=== PATIENT | female | born 2005 | race Two or more races ===

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

== ENCOUNTER 2023-01-08 20:51 | Emergency (ER) | payer BC, SELFPAY ==
[2023-01-08 20:58] VITALS: BP 161/106; PULSE 116; RESP 20; TEMP 37.6; O2SAT 100
== END 2023-01-08 21:31 | disposition left against medical advice (07) ==
DX: R06.02 Shortness of breath (principal)
CPT/HCPCS: 99199

== ENCOUNTER 2023-03-03 18:25 | Inpatient (IN) | payer BC, SELFPAY ==
[2023-03-03] VITALS (17 sets, daily range): BP systolic 100–129; BP diastolic 60–104; PULSE 76–101; RESP 10–24; TEMP 36.8–37.6; O2SAT 96–100
--- NOTE | ~2023-03-03 | MR_ITS ---
MRI of the brain Clinical History: Seizure Technique: Axial and sagittal T1-weighted images were acquired. These were followed by axial T2-weigh sparkle, diffusion weighted, gradient, and FLAIR images. Coronal T1-weighted and FLAIR images were also p erformed. Following intravenous administration of 10 cc MultiHance gadolinium, T1-weighted fat-sat im aging was performed in the axial and coronal and sagittal planes. Findings: No abnormal signal seen in the brain parenchyma. No acute infarct, intracranial hemorrhage, or mass lesion. Ventricles and subarachnoid spaces are unremarkable. Orbits are unremarkable. Paranasal sinuses and m astoid air cells are clear. Major intracranial flow voids are intact. Sagittal midline structures are intact. No signal abnormality seen in the hippocampal regions. No abnormal postcontrast enhancement identified. IMPRESSION: Unremarkable exam. Reviewed, dictated and finalized at location . IMPRESSION: Unremarkable exam.
--- NOTE | 2023-03-03 19:37 | ECG_ITS ---
Measurements Intervals [place] Rate: 89 P: 65 IN: 131 QRS: 77 QRSD: 74 T: 47 QT: 337 QTc: 411 Interpretive Statements SINUS RHYTHM NORMAL ECG COMPARED TO ECG 08/13/2022 21:26:35 NO SIGNIFICANT CHANGES Electronically Signed On 03-04-2023 7:06:19 CDT by Ethan Starks M.D.
[2023-03-03] MEDS: ALPRAZolam (*CRX) 0.5 MG TABLET PO (19:48)
[2023-03-03] MEDS: SODIUM CHLORIDE 0.9% IV 1,000 ML 999 ML IV CONT (19:49)
[2023-03-03 19:52] LABS: Glucose Point of Care 100 mg/dl (65-105)
[2023-03-03 20:18] LABS: Amphetamine Screen Urine Negative (Negative); Barbiturate Screen Urine Negative (Negative); Benzodiazepines Screen Urine Negative (Negative); Cannabinoid Screen Urine Negative (Negative); Cocaine Screen Urine Negative (Negative); Methadone Screen Urine Negative (Negative); Opiate Screen Urine Negative (Negative); Phencyclidine Screen Urine Negative (Negative)
--- NOTE | 2023-03-03 20:32 | ED.GENADULT ---
HPI - General Adult General Chief complaint: Seizure Stated complaint: seizure Time Seen by Provider: 03/03/23 19:14 History of Present Illness HPI narrative: A 17-year-old female presenting with a chief complaint of seizure-like activity. The 1st episode happened 2 days ago. It occurred while she was in the mall where she developed an episode of lightheadedness, slow movement and then she started standing there and her eyes rolled back to into her head. Her friends were with her sometimes she return to mental status at baseline. Yesterday she had several episodes that were similar. And then today she has had 3 episodes although today the patient had blurry vision and then went limp and then the friend reported seizure-like activity. After that episode they reported that she did have a 15 period of somnolence before returning to baseline. She has not had a urinary incontinence or tongue biting. She has no history of seizures in the past. She denies use of drugs or alcohol. He denies trauma. Patient was evaluated at [facility] yesterday and diagnosed with pseudo nonepileptic seizures and given Neurology follow-up. The patient has not followed up with neurology appear Related Data Home Medications Medication Instructions Recorded Confirmed amitriptyline 25 mg tablet mg 03/03/23 03/03/23 medroxyprogesterone 150 mg/mL mg IM 03/03/23 intramuscular suspension mometasone 220 mcg/actuation(30 inhalation 03/03/23 doses) breath activated powder inhaler (Asmanex Twisthaler) Allergies Allergy/AdvReac Type Severity Reaction Status Date / Time No Known Allergies Allergy Verified 08/13/22 20:29 [facility] Past Medical History Medical History Asthma Surgical History Surgical History History of knee surgery Social History Social History Smoking status: Current every day smoker Tobacco type: e-cigarettes/vaping Alcohol intake: current Alcohol use details: occasional Substance use: never Exam Narrative: APPEARANCE: No apparent distress. Head: atraumatic. EYES: EOMI, NOSE: Atraumatic NECK: Trachea midline RESPIRATORY: No increased rate of breathing , clear to auscultation CARDIOVASCULAR: RRR, ABDOMINAL: Non-distended MUSCULOSKELETAl: No obvious deformities NEURO: Alert. Cranial nerves 2-12 grossly intact. Sensation light touch, motor function cerebellar function intact for 4 extremities. Gait exam was normal. SKIN:: Warm, dry. Normal color PSYCHIATRIC: Normal affect Course Vital Signs Vital signs: Vital Signs Temperature 98.2 F 03/03/23 18:22 Pulse Rate 88 03/03/23 18:22 Respiratory Rate 16 03/03/23 18:22 Blood Pressure 122/62 03/03/23 18:22 Pulse Oximetry 97 03/03/23 18:22 Temperature 99.6 F 03/03/23 19:37 Pulse Rate 89 03/03/23 22:38 Respiratory Rate 16 03/03/23 22:38 Blood Pressure 115/89 03/03/23 22:38 Pulse Oximetry 100 03/03/23 22:38 Oxygen Delivery Room Air 03/03/23 19:38 Medical Decision Making MDM Narrative Medical decision making narrative: -Presentation: 17-year-old female presenting with seizure-like activity that is increasing in frequency. -DDX includes but is not limited to: [id number] seizures, epileptic seizures, syncope -Co-morbidities complicating care: anxiety -Social determinants of health: patient is a freshman in college studying elementary teaching. [place]. Her family lives 2 hours away. -External Chart Review: Review of discharge paperwork from [facility] -Hx from independent Sources: friends -Amrita and Loyda at bedside -Discussion of Management/Consultants: Oriana - Neurology, Lizbeth - Hospitalist -Independent interpretation of studies: CBC showed a hemoglobin of 10.3. Metabolic panel is within normal limits. Urinaly
[2023-03-03 20:38] LABS: Basophils Absolute Auto 0.1 K/mm3 (0.0-0.1); Basophils Percent Auto 0.7 % (0.2-1.2); Eosinophils Absolute Auto 0.2 K/mm3 (0-0.3); Hematocrit 33.2 % (37.0-47.0); Hemoglobin 10.3 g/dL (12.0-15.0); Immature Granulocyte Absolute 0.02 K/mm3 (0.00-0.031); Immature Granulocyte Percent A 0.2 % (0-0.5); Lymphocytes Absolute Auto 2.32 K/mm3 (0.9-3.2); Lymphocytes Percent Auto 21.8 % (18.3-44.2); Mean Corpuscular Hemoglobin 24.9 pg (26-34); Mean Corpuscular Volume 80.4 fl (80-100); Mean Platelet Volume 8.9 fl (7.4-10.4); Monocytes Percent Auto 9.8 % (2.6-8.5); Neutrophils Percent Auto 65.5 % (45.5-73.1); Platelet Count Result 390 k/mm3 (150-375); Red Blood Count 4.13 M/mm3 (4.2-5.4); Red Cell Distribution Width 14.5 % (11.5-14.5); White Blood Count 10.6 K/mm3 (4.5-10.0)
[2023-03-03 20:49] LABS: Anion Gap 8 mmol/L (8-16); Blood Urea Nitrogen 8 mg/dL (8-21); Calcium 7.9 mg/dL (8.9-10.7); Carbon Dioxide 22 mmol/L (22-30); Chloride 110 mmol/L (98-107); Estimated CRCL calculation 130 ml/min; Estimated Glomerular Filt Rate > 60; Glucose 97 mg/dL (65-110); Potassium 3.7 mmol/L (3.4-5.0); Sodium 140 mmol/L (134-143)
[2023-03-03 21:22] LABS: Appearance Urine Clear (Clear); Bilirubin Urine Negative (Negative); Blood Urine Negative (Negative); Color Urine Yellow (Yellow); Glucose Urine UA Negative (Negative); Ketones Urine Negative (Negative); Leukocyte Esterase Ur Trace LEU/UL (Negative); Nitrate Urine Negative (Negative); Protein Urine Negative (Negative); Urobilinogen Urine 0.2 mg/dL (<2.0); pH Urine 5.5 (5.0-9.0)
[2023-03-03 21:27] LABS: Add Urine Microscopic? NO
--- NOTE | 2023-03-03 23:21 | PM.IMHP ---
H&P: HPI History of Present Illness Date/Time: 03/03/23 23:21 Chief Complaint: Seizure Narrative: This is a 17-year-old year old female patient has no prior history of any seizure activity. The patient states that she does not use any alcohol and has not tried any new medication. The patient stated that her 1st episode of the seizure occurred last night when she was at work. The patient stated that she sat down to eat and she felt like she was going to pass out she was in and out of it and she stated that her friends told her that her eyes rolled back in her head and she stiffened up. The patient was not incontinent of urine. The patient stated that she felt very fatigued afterwards. The patient stated that she had 2 more episodes today where she had blurred vision and went limp. The patient was not incontinent of urine and had no tongue biting. She is not on any medication. She denies any trauma. The patient was evaluated by [facility] yesterday and was diagnosed with pseudo nonepileptic seizures and given neurology follow-up. The patient has been unable to follow-up with neurology as of present. White counts 10.6. H&H is 10.3 and 33.2. Platelet count is 390. Calcium is 7.9. Her drug screen is negative. Neurology has been consulted. The patient is being admitted for observation status on the date of service of 03/03/2023. Review of Systems Review of Systems: All systems reviewed & are unremarkable except as noted in HPI and below Constitutional: Constitutional: Reports as per HPI and Reports no additional constitutional complaints Eyes: Eyes: Reports as per HPI and Reports no additional eye complaints ENT: Reports system reviewed and no additional complaints, except as documented and Reports Normal hearing present Cardiovascular: Cardiovascular: Reports no additional cardiovascular complaints Respiratory: Respiratory: Reports no additional respiratory complaints and Reports no additional respiratory complaints Gastrointestinal: Gastrointestinal: Reports as per HPI and Reports no additional gastrointestinal complaints Musculoskeletal: Musculoskeletal: Reports no additional musculoskeletal complaints Integumentary/Breasts: Skin/Breast: Reports system reviewed and no additional complaints, except as docu and Reports as per HPI Neurologic: Reports system reviewed and no additional complaints, except as documented, Reports as per HPI and Reports Normal hearing present Psychiatric: Psychiatric: Reports no additional psychiatric complaints and Reports as per HPI Endocrine: Endocrine: Reports no additional endocrine complaints Hematologic/Lymphatic: Hematologic/Lymphatic: Reports no additional hematologic/lymphatic complaints Allergic/Immunologic: Allergic/Immunologic: Reports no additional allergic/immunologic complaints [facility] Past Medical History Medical History (Updated 03/04/23 @ 00:01 by Nirmala Arceo NP) Asthma Precordial catch syndrome Surgical History Surgical History History of knee surgery Family History Family History (Updated 03/03/23 @ 23:51 by Nirmala Arceo NP) Mother Diabetes mellitus ALINA on CPAP Anemia Social History Social History (Updated 03/03/23 @ 23:52 by Nirmala Arceo NP) Social History: The patient lives with her mother and she attends [employer] and she is majoring in Education. She has no children. She is single. She denies any drugs or alcohol. Code status full code Smoking status: Current every day smoker Tobacco type: e-cigarettes/vaping Alcohol intake: current Alcohol use details: occasional Substance use: never Meds Home Medications and Allergies Home Medications Medication Instructions Recorded Confirmed Type amitriptyline 25 mg tablet mg 03/03/23 03/03/23 History medroxyprogesterone 150 mg/mL mg IM 03/03/23 History intramuscular suspension mometasone 220 mcg/actuati
[2023-03-04] VITALS (12 sets, daily range): BP systolic 93–136; BP diastolic 45–78; PULSE 64–96; RESP 18–21; TEMP 36.6–37.3; O2SAT 97–100; BMI 21.0
--- NOTE | 2023-03-04 | ECHO_ITS ---
Patient Info Name: Angel Mendes Age: 17 years : 2005 Gender: Female Ht: 64 in Wt: 122 lbs BSA: 1.58 m2 HR: 82 bpm BP: 124 / 70 mmHg Heart Rhythm: Sinus Rhythm Technical Quality: Good Exam Date: 03/04/2023 11:45 AM Exam Location: [facility] Pulmonary Patient Status: Outpatient Admit Date: 03/03/2023 Staff Ordering Physician: Benito Chambers Balance Staff Staker: Sandi Soria RDCS Attending Provider: Freddie Nieves MD Referring Physician: Reyes YEH; Exam Type: CA echo doppler w bubble study Study Info Indications - siezures Complete two-dimensional, color flow and Doppler transthoracic echocardiogram is performed with agitated saline. Strain analysis performed. Contrast/Agitated Saline Contrast/Ag. Saline: Agitated Saline Amount: 20.00 ml Administered By: Annel Ng RDCS Existing IV Access: Yes IV Access Condition: patent with no signs of infiltration Summary 1. Left ventricular chamber dimension is normal. 2. Left ventricular systolic function is lower limits of normal, estimated at 50-55%. 3. Right ventricular systolic function is normal. 4. The aortic valve is not well visualized. Cannot rule out bicuspid aortic valve. 5. There is trace mitral valve regurgitation. 6. There is trace tricuspid valve regurgitation. 7. There is trace pulmonic regurgitation. 8. Intact interatrial septum visualized by color flow and agitated saline imaging. Negative bubble study. Left Ventricle Left ventricular chamber dimension is normal. Left ventricular systolic function is lower limits of normal, estimated at 50-55%. There is no increased left ventricular wall thickness. Global longitudinal strain is normal at -18 %. Right Ventricle Right ventricular chamber dimension is normal. Right ventricular systolic function is normal. Left Atria Left atrial chamber dimension is normal. Right Atria Right atrial chamber dimension is normal. Atrial Septum Intact interatrial septum visualized by color flow and agitated saline imaging. Negative bubble study. Aortic Valve The aortic valve is not well visualized. Cannot rule out bicuspid aortic valve. There is no aortic valve stenosis. There is no aortic valve regurgitation. Pulmonic Valve The pulmonic valve is not well visualized. There is trace pulmonic regurgitation. Mitral Valve The mitral valve has normal leaflets. There is trace mitral valve regurgitation. Tricuspid Valve There is trace tricuspid valve regurgitation. Pericardium/Pleural There is no pericardial effusion. Inferior Vena Cava Normal inferior vena cava with >50% collapse upon inspiration consistent with normal right atrial pressure, 3 mmHg. Aorta The aortic root size at the sinus of Valsalva is normal. Left Ventricular Outflow Tract Name Value Normal LVOT 2D LVOT Diameter 2.0 cm LVOT Doppler LVOT Peak Gradient 2 mmHg LVOT Mean Gradient 1 mmHg LVOT VTI 15 cm LVOT VTI/AV VTI Ratio
--- NOTE | 2023-03-04 00:07 | ADMGEN ---
This patient, Angel Mendes, was admitted to Medical Room 243-01. Patient/family oriented to hospital policies and general routines including ID bracelet, bed and alarms, visiting hours, pain management, procedures, bathroom and other care routines, personal items, smoking policy, room service/diet, and visiting hours. Information on how to activate the Rapid Response Team has been discussed. Patient/Family are encouraged to report perceived risks to care and to ask questions if they do not understand what they are told or what they should do.
[2023-03-04 05:28] LABS: Basophils Absolute Auto 0.1 K/mm3 (0.0-0.1); Basophils Percent Auto 0.9 % (0.2-1.2); Eosinophils Absolute Auto 0.3 K/mm3 (0-0.3); Eosinophils Percent Auto 3.2 % (0-4.4); Hematocrit 34.8 % (37.0-47.0); Hemoglobin 10.5 g/dL (12.0-15.0); Immature Granulocyte Absolute 0.03 K/mm3 (0.00-0.031); Immature Granulocyte Percent A 0.3 % (0-0.5); Lymphocytes Absolute Auto 2.71 K/mm3 (0.9-3.2); Lymphocytes Percent Auto 31.1 % (18.3-44.2); Mean Corpuscular HGB Conc 30.2 g/dl (32-36); Mean Corpuscular Hemoglobin 23.8 pg (26-34); Mean Corpuscular Volume 78.7 fl (80-100); Mean Platelet Volume 9.2 fl (7.4-10.4); Monocytes Percent Auto 11.4 % (2.6-8.5); Neutrophils Absolute Auto 4.6 K/mm3 (1.3-6.7); Neutrophils Percent Auto 53.1 % (45.5-73.1); Platelet Count Result 396 k/mm3 (150-375); Red Blood Count 4.42 M/mm3 (4.2-5.4); Red Cell Distribution Width 14.6 % (11.5-14.5); White Blood Count 8.7 K/mm3 (4.5-10.0)
[2023-03-04 05:30] LABS: Alanine Aminotransferase 17 U/L (6-35); Alkaline Phosphatase 68 U/L (45-116); Anion Gap 6 mmol/L (8-16); Aspartate Amino Transferase 27 U/L (14-36); Bilirubin,Total 0.3 mg/dL (0.2-1.3); Blood Urea Nitrogen 8 mg/dL (8-21); Calcium 8.6 mg/dL (8.9-10.7); Carbon Dioxide 27 mmol/L (22-30); Chloride 108 mmol/L (98-107); Estimated CRCL calculation 111 ml/min; Estimated Glomerular Filt Rate > 60; Glucose 94 mg/dL (65-110); Magnesium 2.1 mg/dL (1.6-2.3); Potassium 3.6 mmol/L (3.4-5.0); Sodium 141 mmol/L (134-143)
[2023-03-04 06:04] LABS: Vitamin D 25 Hydroxy 19.9 ng/mL
[2023-03-04 06:07] LABS: Ferritin 5.49 ng/mL (6.24-137)
[2023-03-04 07:36] LABS: Iron 18 ug/dL (37-170)
[2023-03-04 07:48] LABS: Percent Iron Saturation 4 % (20-50)
[2023-03-04 07:49] LABS: Transferrin 278 mg/dL (206-381)
--- NOTE | 2023-03-04 08:15 | PM.IMPN ---
Progress Note: A&P Assessment and Plan (1) New onset seizure: Code(s): R56.9 - Unspecified convulsions Status: Acute Assessment and Plan: Presented with body stiffening, happened multiple times Was seen at [facility], diagnosed with pseudononepileptic seizures Witness seizure on 03/04/23 Keppra 1000mg IV once for loading dose and 500mg IV BID for maintainence Neuro consulted Ativan on board EEG normal record MRI unremarkable denies ETOH or drug use UDS negative for any findings Prolactin ordered and is pending Echo ordered (2) Anxiety: Code(s): F41.9 - Anxiety disorder, unspecified Status: Acute Assessment and Plan: Continue home Amitriptyline Trend mood adjust medication as indicated (3) Asthma: Code(s): J45.909 - Unspecified asthma, uncomplicated Status: Acute Assessment and Plan: Continue home medications (4) Hypocalcemia: Code(s): E83.51 - Hypocalcemia Status: Acute Assessment and Plan: Hypocalcemia can cause paresthesias, muscle spasms, cramps, tetany, and seizures. TSH 2.180 vitamin-D levels 19.9 Ionized calcium pending (5) Anemia: Code(s): D64.9 - Anemia, unspecified Status: Acute Assessment and Plan: H/H 10.5/34.8 anemia labs iron 18, TIBC 401, % saturation 4, transferrin 278, ferritin 5.49, vitamin B12 388, folate 9.3 Supplement with iron 325 b.i.d. trend labs transfuse as indicated appears to be iron deficiency anemia Time Spent With Patient Time: 52 minutes 25 minutes of critical care time Time with patient: Greater than 35 minutes Subjective Date/time seen: 03/04/23 08:15 Interval history: 03/04/23 0815 Was called to the patient's room for rapid response. Patient was actively convulsing in bed. She would not respond was stiff as a board. Patient was given 1 mg of Ativan however was still having some twitching and convulsion and was given an additional dose of Ativan. Convulsions have stopped and patient was resting comfortably. Patient did give a thumbs-up however was unable to speak. Patient also did shake her head as well. Due to current medical condition patient was unable to give a complete review of systems. Started patient on 1 g of Keppra for loading dose and 500 mg twice a day. Also talked to Dr. Gastelum about current recent events. EEG was performed and Dr. Gastelum stated that he would evaluate the patient here soon. He also agreed with the Keppra at this time. Dr. Cabello was also present through the rapid response and had agreed with the management and plan of starting the Keppra. Prolactin was also drawn awaiting value. Patient's mother was present and update was given to her for plan of care along with next steps of care. All questions were answered. 03/03/23? 23:21 This is a 17-year-old year old female patient has no prior history of any seizure activity.? The patient states that she does not use any alcohol and has not tried any new medication.? The patient stated that her 1st episode of the seizure occurred last night when she was at work.? The patient stated that she sat down to eat and she felt like she was going to pass out she was in and out of it and she stated that her friends told her that her eyes rolled back in her head and she stiffened up.? The patient was not incontinent of urine.? The patient stated that she felt very fatigued afterwards.? The patient stated that she had 2 more episodes today where she had blurred vision and went limp.? The patient was not incontinent of urine and had no tongue biting.? She is not on any medication.? She denies any trauma.? The patient was evaluated by [facility] yesterday and was diagnosed with pseudo nonepileptic seizures and given neurology follow-up.? The patient has been unable to follow-up with neurology as of present.? Deysi pantoja
[2023-03-04] MEDS: LORazepam INJ (*CRX) 2 MG/ML VIAL 1 MG IV PUSH ×3 (08:31→22:45)
[2023-03-04] MEDS: levETIRAcetam 1000MG/NACL100ML 1,000 MG/100 ML BAG 400 MG IVPB (08:41)
[2023-03-04 08:48] LABS: Folic Acid 9.3 ng/mL (2.76->20)
--- NOTE | 2023-03-04 08:55 | PC.NURSE ---
Patient had seizure like activity, rapid response was called. 1 mg lorazepam was given per MAR, Provider in room. Instructed to give the other 1 mg from vial. Orders entered into system.
--- NOTE | 2023-03-04 09:33 | P.NEURO_ITS ---
Neurology EEG Report General Information Date of Study: 03/04/23 TEST EEG DIAGNOSIS new onset seizures CONDITION OF RECORDING awake drowsy and sleep EEG NUMBER [id number] CLINICAL HISTORY patient came to the emergency room for evaluation of possible seizures. Patient lost consciousness couple of times stiffening of the body. Denies loss of bladder or bowel control was seen at [facility] the night before and was discharged with pseudo seizure diagnosis. EEG DESCRIPTION Basic resting occipital frequency consists of low to medium voltage 9 to 11 hertz per 2nd alpha admixed with low-voltage 15 to 18 hertz per 2nd beta. Low-voltage beta activity seen diffusely admixed with waxing and waning posterior alpha rhythm during drowsiness. Bilateral symmetrical sleep activity seen during sleep. Non paroxysmal nonfocal nonlateralizing. IMPRESSION normal record
--- NOTE | 2023-03-04 11:21 | WPDNEURCNPN ---
Assessment and Plan Assessment and plan (1) New onset seizure: Code(s): R56.9 - Unspecified convulsions Status: Acute Plan possibility of anxiety related seizure EEG has already been reviewed it is completely normal MRI is negative I had tried not to give her too many medications she has already been loaded with 1 g of Keppra will continue that and if she wakes will give her IM medication Q 8 to 12 hours for sedation. Further readjustment will made accordingly thank you with all the seizure precautions for the time being Consult date: 03/04/23 Reason for consult: 17 years old has been admitted to [facility] through the emergency room for the complaints of seizure-like activity with the information the 1st episode happened 2 days ago while she was in the mall where she developed an episode of lightheadedness slow movement and then she started standing there her eyes roll back into her head her friends were there who noted then she returned to the baseline mental status yesterday she had several episodes that were similar and then she had 3 episodes today with complaint of blurred vision and then going limp followed by seizure-like activity she has had 15 episodes of somnolence before returning to baseline she had no incontinence of bowel or bladder or no tongue biting. Medications included amitriptyline 25 mg daily, she is not allergic to any medication, she has a history of bronchial asthma and knee surgery, initial exam in the emergency room was normal including the vital signs routine labs were normal drug screen was negative patient had been on amitriptyline 25 mg daily and MRI of the brain is normal, EEG has been done which was completely normal HPI: [facility] Past Medical History Medical History (Updated 03/04/23 @ 07:27 by JOSE MARIA Chan) Asthma Precordial catch syndrome Family History Family History Mother Diabetes mellitus ALINA on CPAP Anemia Social History Social History (Updated 03/03/23 @ 23:52 by Nirmala Arceo NP) Social History: The patient lives with her mother and she attends [employer] and she is majoring in Education. She has no children. She is single. She denies any drugs or alcohol. Code status full code Smoking status: Never smoker Tobacco type: e-cigarettes/vaping Alcohol intake: never Alcohol use details: occasional Substance use: never Lack of Transportation: No Lack of Food: Never True Current Housing: I Have Housing Concerned About Future Housing: No Difficulty Paying Gas/Electric Bills: No Difficulty Paying for Meds: No Currently Unemployed: No Education: High School Diploma/GED Difficulty w/ Childcare or Family Care: No Spiritual care concerns: No Meds Home Medications and Allergies Home Medications Medication Instructions Recorded Confirmed Type amitriptyline 25 mg tablet 25 mg PO HS PRN Sleep 03/03/23 03/04/23 History medroxyprogesterone 150 mg/mL 150 mg IM MONTHLY 03/03/23 03/04/23 History intramuscular suspension mometasone 220 mcg/actuation(30 1 inh inhalation DAILY 03/03/23 03/04/23 History doses) breath activated powder inhaler (Asmanex Fundabilityhaler) Allergies Allergy/AdvReac Type Severity Reaction Status Date / Time No Known Allergies Allergy Verified 08/13/22 20:29 Vital Signs Vital Signs - 24 hr 03/03/23 18:22 03/03/23 18:35 03/03/23 19:37 Temperature 36.8 C 37.6 C Pulse Rate 88 88 Respiratory Rate 16 10 L Blood Pressure 122/62 121/78 Pulse Oximetry 97 97 Oxygen Delivery Room Air 03/03/23 19:38 03/03/23 18:35 03/03/23 18:45 Temperature Pulse Rate 84 101 H Respiratory Rate 17 21 H Blood Pressure Pulse Oximetry 96 Oxygen Delivery Room Air 03/03/23 19:37 03/03/23 19:38 03/03/23 19:45 Temperature Pulse Rate 83 81 92 Respiratory Rate 14 17 24 H Blood Pressure 121/78 122/79 Pulse Oximetry O
[2023-03-04] MEDS: levETIRAcetam 500MG/NACL 100ML 500 MG/100 ML BAG 400 MG IVPB (20:20)
--- NOTE | 2023-03-04 23:01 | PC.NURSE ---
Patient called staff to go to the restroom. Nurse answered call light. Patient stated she feels too weak to ambulate to the restroom, asked for another staff assist to ambulate patient. Nurse was looking for commode when BANK BOSS called nurse in, patient having seizure like activity. Seizure lasted for 1-2 minutes. Patient verbal during seizure but unable to make out words. Ativan given per order. Seizure stopped, patient able to speak and communicate needs immediately after seizure. Patient able to follow commands, neuro checks completed. No injury during seizure, no incontinence, no biting of tongue or cheeks. Mother at bedside. Patient did use bed morris without difficulty and was able to pull underwear and pants on.
[2023-03-04] MEDS: diazePAM INJ (*CRX) 10 MG/2 ML SYRINGE 5 MG IM (23:39)
[2023-03-05] VITALS (10 sets, daily range): BP systolic 94–104; BP diastolic 52–62; PULSE 65–111; RESP 16–20; TEMP 36.3–36.7; O2SAT 98–99
[2023-03-05 05:35] LABS: Basophils Absolute Auto 0.1 K/mm3 (0.0-0.1); Basophils Percent Auto 0.7 % (0.2-1.2); Eosinophils Absolute Auto 0.2 K/mm3 (0-0.3); Eosinophils Percent Auto 2.1 % (0-4.4); Hematocrit 35.9 % (37.0-47.0); Hemoglobin 10.7 g/dL (12.0-15.0); Immature Granulocyte Absolute 0.02 K/mm3 (0.00-0.031); Immature Granulocyte Percent A 0.2 % (0-0.5); Lymphocytes Absolute Auto 2.57 K/mm3 (0.9-3.2); Lymphocytes Percent Auto 31.5 % (18.3-44.2); Mean Corpuscular HGB Conc 29.8 g/dl (32-36); Mean Corpuscular Hemoglobin 24.2 pg (26-34); Mean Platelet Volume 8.7 fl (7.4-10.4); Monocytes Absolute Auto 0.7 K/mm3 (0.1-0.6); Neutrophils Absolute Auto 4.7 K/mm3 (1.3-6.7); Neutrophils Percent Auto 57.5 % (45.5-73.1); Platelet Count Result 379 k/mm3 (150-375); Red Blood Count 4.43 M/mm3 (4.2-5.4); Red Cell Distribution Width 14.8 % (11.5-14.5); White Blood Count 8.2 K/mm3 (4.5-10.0)
[2023-03-05 05:36] LABS: Alanine Aminotransferase 17 U/L (6-35); Albumin Level 4.2 g/dL (3.7-5.6); Alkaline Phosphatase 73 U/L (45-116); Anion Gap 8 mmol/L (8-16); Aspartate Amino Transferase 25 U/L (14-36); Bilirubin,Total 0.6 mg/dL (0.2-1.3); Blood Urea Nitrogen 10 mg/dL (8-21); Calcium 8.8 mg/dL (8.9-10.7); Carbon Dioxide 25 mmol/L (22-30); Chloride 106 mmol/L (98-107); Estimated CRCL calculation 111 ml/min; Estimated Glomerular Filt Rate > 60; Glucose 75 mg/dL (65-110); Magnesium 2.2 mg/dL (1.6-2.3); Potassium 3.9 mmol/L (3.4-5.0); Sodium 139 mmol/L (134-143)
[2023-03-05 06:31] LABS: Platelet Estimate Increased (Adequate)
[2023-03-05 06:32] LABS: Ovalocytes 1+ (NORMAL); Schistocytes None Seen (NORMAL)
--- NOTE | 2023-03-05 09:15 | PC.NURSE ---
Spoke with Dr. Gastelum in regards to patient wanting to ambulate to bathroom. Dr. Gastelum present in room and states to let patient ambulate to bathroom as she is more orientated today. Patient ambulated well to bathroom with RN and EQUIPMENT VALIDATION SPECIALIST beside her. Patient returned to bed. No dizziness, pain, or seizure like activity while ambulating.
[2023-03-05] MEDS: levETIRAcetam 500MG/NACL 100ML 500 MG/100 ML BAG 400 MG IVPB ×2 (09:59→20:32)
--- NOTE | 2023-03-05 11:15 | P.PNIM_ITS ---
Progress Note: A&P Assessment and Plan (1) New onset seizure: Code(s): R56.9 - Unspecified convulsions Status: Acute Assessment and Plan: * Presented with body stiffening, happened multiple times * Was seen at [place], diagnosed with pseudoepileptic seizures * Witness seizure on 03/04/23 * Keppra 1000mg IV once for loading dose and 500mg IV BID for maintenance * Neuro consulted * Ativan on board * EEG normal record * MRI unremarkable * denies ETOH or drug use * UDS negative for any findings * Prolactin ordered and is pending * Echo normal (2) Anxiety: Code(s): F41.9 - Anxiety disorder, unspecified Status: Acute Assessment and Plan: * Takes the amitriptyline for sleep * advise patient to stop this medication at this time * Trend mood * adjust medication as indicated (3) Asthma: Code(s): J45.909 - Unspecified asthma, uncomplicated Status: Acute Assessment and Plan: * Continue home medications (4) Hypocalcemia: Code(s): E83.51 - Hypocalcemia Status: Acute Assessment and Plan: * Hypocalcemia can cause paresthesias, muscle spasms, cramps, tetany, and seizures. * TSH 2.180 * vitamin-D levels 19.9 * Ionized calcium pending (5) Anemia: Code(s): D64.9 - Anemia, unspecified Status: Acute Assessment and Plan: * H/H 10.5/34.8 * anemia labs iron 18, TIBC 401, % saturation 4, transferrin 278, ferritin 5.49, vitamin B12 388, folate 9.3 * Supplement with iron 325 b.i.d. * trend labs * transfuse as indicated * appears to be iron deficiency anemia Plan mother also in room Time Spent With Patient Time: 48 minutes Subjective Date/time seen: 03/05/23 1115 Interval history: 03/05/23 111 Patient is lying in bed. Patient did arouse and awake when talked to. She did have a no other episode overnight. Currently she is feeling a lot better. She is lightheaded and dizzy when she walks. It sounds like she is taking her amitriptyline for 2-3 days at a time then off for 5-7 days. It seems related to the amitriptyline however it could be new onset seizures. Will discuss with Neurology further plan. 03/04/23 0815 Was called to the patient's room for rapid response. Patient was actively convulsing in bed. She would not respond was stiff as a board. Patient was given 1 mg of Ativan however was still having some twitching and convulsion and was given an additional dose of Ativan. Convulsions have stopped and patient was resting comfortably. Patient did give a thumbs-up however was unable to speak. Patient also did shake her head as well. Due to current medical condition patient was unable to give a complete review of systems. Started patient on 1 g of Keppra for loading dose and 500 mg twice a day. Also talked to Dr. Gastelum about current recent events. EEG was performed and Dr. Gastelum stated that he would evaluate the patient here soon. He also agreed with the Keppra at this time. Dr. Cabello was also present through the rapid response and had agreed with the management and plan of starting the Keppra. Prolactin was also drawn awaiting value. Patient's mother was present and update was given to her for plan of care along with next steps of care. All questions were answered. 03/03/23? 23:21 This is a 17-year-old year old femal
--- NOTE | 2023-03-05 11:15 | PM.IMPN ---
Progress Note: A&P Assessment and Plan (1) New onset seizure: Code(s): R56.9 - Unspecified convulsions Status: Acute Assessment and Plan: Presented with body stiffening, happened multiple times Was seen at [place], diagnosed with pseudoepileptic seizures Witness seizure on 03/04/23 Keppra 1000mg IV once for loading dose and 500mg IV BID for maintenance Neuro consulted Ativan on board EEG normal record MRI unremarkable denies ETOH or drug use UDS negative for any findings Prolactin ordered and is pending Echo normal (2) Anxiety: Code(s): F41.9 - Anxiety disorder, unspecified Status: Acute Assessment and Plan: Takes the amitriptyline for sleep advise patient to stop this medication at this time Trend mood adjust medication as indicated (3) Asthma: Code(s): J45.909 - Unspecified asthma, uncomplicated Status: Acute Assessment and Plan: Continue home medications (4) Hypocalcemia: Code(s): E83.51 - Hypocalcemia Status: Acute Assessment and Plan: Hypocalcemia can cause paresthesias, muscle spasms, cramps, tetany, and seizures. TSH 2.180 vitamin-D levels 19.9 Ionized calcium pending (5) Anemia: Code(s): D64.9 - Anemia, unspecified Status: Acute Assessment and Plan: H/H 10.5/34.8 anemia labs iron 18, TIBC 401, % saturation 4, transferrin 278, ferritin 5.49, vitamin B12 388, folate 9.3 Supplement with iron 325 b.i.d. trend labs transfuse as indicated appears to be iron deficiency anemia Plan mother also in room Time Spent With Patient Time: 48 minutes Subjective Date/time seen: 03/05/23 111 Interval history: 03/05/231114 Patient is lying in bed. Patient did arouse and awake when talked to. She did have a no other episode overnight. Currently she is feeling a lot better. She is lightheaded and dizzy when she walks. It sounds like she is taking her amitriptyline for 2-3 days at a time then off for 5-7 days. It seems related to the amitriptyline however it could be new onset seizures. Will discuss with Neurology further plan. 03/04/23 0815 Was called to the patient's room for rapid response. Patient was actively convulsing in bed. She would not respond was stiff as a board. Patient was given 1 mg of Ativan however was still having some twitching and convulsion and was given an additional dose of Ativan. Convulsions have stopped and patient was resting comfortably. Patient did give a thumbs-up however was unable to speak. Patient also did shake her head as well. Due to current medical condition patient was unable to give a complete review of systems. Started patient on 1 g of Keppra for loading dose and 500 mg twice a day. Also talked to Dr. Gastelum about current recent events. EEG was performed and Dr. Gastelum stated that he would evaluate the patient here soon. He also agreed with the Keppra at this time. Dr. Cabello was also present through the rapid response and had agreed with the management and plan of starting the Keppra. Prolactin was also drawn awaiting value. Patient's mother was present and update was given to her for plan of care along with next steps of care. All questions were answered. 03/03/23? 23:21 This is a 17-year-old year old female patient has no prior history of any seizure activity.? The patient states that she does not use any alcohol and has not tried any new medication.? The patient stated that her 1st episode of the seizure occurred last night when she was at work.? The patient stated that she sat down to eat and she felt like she was going to pass out she was in and out of it and she stated that her friends told her that her eyes rolled back in her head and she stiffened up.? The patient was not incontinent of urine.? The patient stated that she felt very fatigued afterwards.
--- NOTE | 2023-03-05 11:27 | WPDNEUROPN ---
Subjective Date/time seen: 03/05/23 11:27 Interval history: 17 years old right-handed female seen yesterday with the possibility of anxiety related seizure, normal EEG, normal MRI, yesterday given Valium IM Q 8 to 12 hours for sedation and this morning she is bright alert awake follows all the instruction very well wants to get out of the bed to go to the bathroom she did have an episode last evening or late evening and she has also received Keppra 500 mg q.12 hours intravenous. This morning her exam is completely normal we had switched the Valium from intramuscular to p.o. and observe her for 24 more hours. Her exam is completely normal Objective Data Vital Signs Vital Signs: Vital Signs - 24 hr 03/04/23 14:00 03/04/23 12:00 03/04/23 16:00 Temperature 37.1 C Pulse Rate 88 68 76 Respiratory Rate 18 Blood Pressure 93/45 L Pulse Oximetry 99 Oxygen Delivery 03/04/23 20:00 03/04/23 22:00 03/04/23 22:50 Temperature 37.3 C 36.6 C Pulse Rate 84 89 95 Respiratory Rate 20 20 Blood Pressure 102/45 L 112/64 Pulse Oximetry 98 97 Oxygen Delivery 03/05/23 00:00 03/05/23 04:00 03/05/23 06:00 Temperature 36.7 C Pulse Rate 76 75 74 Respiratory Rate 20 Blood Pressure 102/62 Pulse Oximetry 99 Oxygen Delivery 03/05/23 09:19 03/05/23 08:00 03/05/23 09:58 Temperature Pulse Rate 65 Respiratory Rate Blood Pressure Pulse Oximetry 98 Oxygen Delivery Room Air Room Air Intake/Output Intake/Output: Intake & Output 03/02/23 03/03/23 03/04/23 03/05/23 23:59 23:59 23:59 23:59 Intake Total 1000 1120 1100 Output Total 100 Balance 1000 1020 1100 Meds/Results Medications: Active Medications Generic Name Dose Route Start Last Admin Trade Name Freq PRN Reason Stop Dose Admin Diazepam 5 mg 03/05/23 09:00 03/05/23 10:51 Diazepam (*Crx) 5 Mg Tablet PO Not Given Q12HR [facility] Levetiracetam 500 mg in 100 mls @ 400 mls/hr 03/04/23 21:00 03/05/23 10:14 Keppra Iv IVPB Infused Q12HR [facility] Infusion Lorazepam 1 mg 03/04/23 10:48 03/04/23 22:45 Lorazepam Inj (*Crx) 2 Mg/Ml Vial IV PUSH 1 mg Q6H PRN Administration Anxiety and siezures Perflutren Lipid Microsphere 0 ml 03/04/23 07:12 Perflutren Lipid Microspheres 1.5 Ml Vial Diluted To 10 Ml Total Volume IV PUSH 03/06/23 07:13 ONCE PRN adequate visualization Protocol Radiology Results: ITS Impressions Brain MRI 03/04/23 07:21 IMPRESSION: Unremarkable exam. Labs Labs: Laboratory Results - last 24 hr 03/05/23 03/05/23 04:53 04:53 WBC 8.2 RBC 4.43 Hgb 10.7 L Hct 35.9 L MCV 81.0 MCH 24.2 L MCHC 29.8 L RDW 14.8 H Plt Count 379 H MPV 8.7 Immature Gran % (Auto) 0.2 Neut % (Auto) 57.5 Lymph % (Auto) 31.5 Piute % (Auto) 8.0 Eos % (Auto) 2.1 Baso % (Auto) 0.7 Lymph # (Auto) 2.57 Piute # (Auto) 0.7 H Eos # (Auto) 0.2 Baso # (Auto) 0.1 Abs Immat Gran (auto) 0.02 Absolute Neuts (auto) 4.7 Absolute Nucleated RBC 0.0 Nucleated RBC % 0.0 Platelet Estimate Increased Ovalocytes 1+ Schistocytes None seen Sodium 139 Potassium 3.9 Chloride 106 Carbon Dioxide 25 Anion Gap 8 BUN 10 Creatinine 0.60 L Estim Creat Clear Calc 111 Estimated GFR > 60 Glucose 75 Calcium 8.8 L Magnesium 2.2 Total Bilirubin 0.6 AST 25 ALT 17 Alkaline Phosphatase 73 Total Protein 7.0 Albumin 4.2 Amg Follow-up Billing [facility] Follow-up Hospital Follow-up: [id number] [facility] Mod
[2023-03-05] MEDS: LORazepam INJ (*CRX) 2 MG/ML VIAL 1 MG IV PUSH (14:34)
--- NOTE | 2023-03-05 15:00 | PM.EVENT ---
Event Note Event Note Event Note: At 1500 rapid response was called. Went to evaluate patient it was noted that she was having convulsions. 1mg of IV ativan was given and convulsion had stopped. Spoke with her mother about plan of care. Also spoke with Dr. Gastelum who also informed of the episode, and stated that it was recommended to go back to the Valium IM for a bit, as he does not think that this is true epilepsy. Unknown triggers identified. 35 minutes of critical care time
--- NOTE | 2023-03-05 15:06 | PC.NURSE ---
Patient experiencing seizure activity. RN got extra staff into room to help keep patient safe from injury during seizure. Rapid Response initiated. Seizure continued. Ativan administered (see MAR). Seizure continued another minute. Overall seizure last roughly 3 minutes. Patient is verbal, oriented, sitting up, drinking water, and following commands post seizure. Patient did not bite tongue or cheeks. Hospitalist Michael Chambers was at bedside. New orders given (see orders). Patient resting comfortably at this side with mother at bedside.
[2023-03-05] MEDS: ALBUTEROL SULFATE (*SP) AEROSOL 1 PUFF 2 PUFF INHALATION (15:24)
[2023-03-05] MEDS: diazePAM (*CRX) 5 MG TABLET PO (20:33)
[2023-03-06] VITALS (8 sets, daily range): BP systolic 100–104; BP diastolic 51–63; PULSE 69–98; RESP 16–21; TEMP 36.7–36.8; O2SAT 96–100
[2023-03-06] MEDS: levETIRAcetam 500MG/NACL 100ML 500 MG/100 ML BAG 400 MG IVPB ×2 (09:25→20:17)
[2023-03-06] MEDS: diazePAM (*CRX) 5 MG TABLET PO ×2 (09:25→20:18)
[2023-03-06] MEDS: LORazepam INJ (*CRX) 2 MG/ML VIAL 1 MG IV PUSH ×4 (10:50→21:26)
--- NOTE | 2023-03-06 10:50 | PC.NURSE ---
Patient has a seizure that lasted roughly 2 minutes. Medication given (SEE MAR). Called Hospitalist Michael Chambers and undated him on the patient. Neurologist Dr. Gastelum was rounding during this episode and was at bedside toward the end of the seizure.
--- NOTE | 2023-03-06 11:45 | P.PNIM_ITS ---
Progress Note: A&P Assessment and Plan (1) New onset seizure: Code(s): R56.9 - Unspecified convulsions Status: Acute Assessment and Plan: * Presented with body stiffening, happened multiple times * Was seen at [place], diagnosed with pseudoepileptic seizures * Witness seizure on 03/04/23, and 03/05/23 * Keppra 1000mg IV once for loading dose and 500mg IV BID for maintenance * Neuro consulted * Ativan on board * EEG normal record * MRI unremarkable * denies ETOH or drug use * UDS negative for any findings * Prolactin ordered and is pending * Echo normal (2) Anxiety: Code(s): F41.9 - Anxiety disorder, unspecified Status: Acute Assessment and Plan: * Takes the amitriptyline for sleep * advise patient to stop this medication at this time * Trend mood * adjust medication as indicated (3) Asthma: Code(s): J45.909 - Unspecified asthma, uncomplicated Status: Acute Assessment and Plan: * Continue home medications (4) Hypocalcemia: Code(s): E83.51 - Hypocalcemia Status: Acute Assessment and Plan: * Hypocalcemia can cause paresthesias, muscle spasms, cramps, tetany, and seizures. * TSH 2.180 * vitamin-D levels 19.9 * Ionized calcium still pending (5) Anemia: Code(s): D64.9 - Anemia, unspecified Status: Acute Assessment and Plan: * H/H 10.7/35.9 * anemia labs iron 18, TIBC 401, % saturation 4, transferrin 278, ferritin 5.49, vitamin B12 388, folate 9.3 * Supplement with iron 325 b.i.d. * trend labs * transfuse as indicated * appears to be iron deficiency anemia Time Spent With Patient Time: 51 minutes Time with patient: Greater than 35 minutes Subjective Date/time seen: 03/06/23 1145 Interval history: 03/06/23 1145 Patient had another episode this morning Ativan was given. It appears that the patient has been having about every 12 hours and is exacerbated mostly by standing. Neurology is suggested the patient be transferred. Spoke with mother who was per for [facility], did get acceptance at [facility]. Currently patient is sleeping and stable. Will await transfer. 03/05/23 1115 Patient is lying in bed. Patient did arouse and awake when talked to. She did have a no other episode overnight. Currently she is feeling a lot better. She is lightheaded and dizzy when she walks. It sounds like she is taking her amitriptyline for 2-3 days at a time then off for 5-7 days. It seems related to the amitriptyline however it could be new onset seizures. Will discuss with Neurology further plan. 03/04/23 0815 Was called to the patient's room for rapid response. Patient was actively convulsing in bed. She would not respond was stiff as a board. Patient was given 1 mg of Ativan however was still having some twitching and convulsion and was given an additional dose of Ativan. Convulsions have stopped and patient was resting comfortably. Patient did give a thumbs-up however was unable to speak. Patient also did shake her head as well. Due to current medical condition patient was unable to give a complete review of systems. Started patient on 1 g of Keppra for loading dose and 500 mg twice a day. Also talked to Dr. Gastelum about current recent events. EEG was performed and Dr. Gastelum stated that he would evaluate the patie
--- NOTE | 2023-03-06 11:45 | PM.IMPN ---
Progress Note: A&P Assessment and Plan (1) New onset seizure: Code(s): R56.9 - Unspecified convulsions Status: Acute Assessment and Plan: Presented with body stiffening, happened multiple times Was seen at [place], diagnosed with pseudoepileptic seizures Witness seizure on 03/04/23, and 03/05/23 Keppra 1000mg IV once for loading dose and 500mg IV BID for maintenance Neuro consulted Ativan on board EEG normal record MRI unremarkable denies ETOH or drug use UDS negative for any findings Prolactin ordered and is pending Echo normal (2) Anxiety: Code(s): F41.9 - Anxiety disorder, unspecified Status: Acute Assessment and Plan: Takes the amitriptyline for sleep advise patient to stop this medication at this time Trend mood adjust medication as indicated (3) Asthma: Code(s): J45.909 - Unspecified asthma, uncomplicated Status: Acute Assessment and Plan: Continue home medications (4) Hypocalcemia: Code(s): E83.51 - Hypocalcemia Status: Acute Assessment and Plan: Hypocalcemia can cause paresthesias, muscle spasms, cramps, tetany, and seizures. TSH 2.180 vitamin-D levels 19.9 Ionized calcium still pending (5) Anemia: Code(s): D64.9 - Anemia, unspecified Status: Acute Assessment and Plan: H/H 10.7/35.9 anemia labs iron 18, TIBC 401, % saturation 4, transferrin 278, ferritin 5.49, vitamin B12 388, folate 9.3 Supplement with iron 325 b.i.d. trend labs transfuse as indicated appears to be iron deficiency anemia Time Spent With Patient Time: 51 minutes Time with patient: Greater than 35 minutes Subjective Date/time seen: 03/06/23 1145 Interval history: 03/06/23 1145 Patient had another episode this morning Ativan was given. It appears that the patient has been having about every 12 hours and is exacerbated mostly by standing. Neurology is suggested the patient be transferred. Spoke with mother who was per for [facility], did get acceptance at [facility]. Currently patient is sleeping and stable. Will await transfer. 03/05/23 1115 Patient is lying in bed. Patient did arouse and awake when talked to. She did have a no other episode overnight. Currently she is feeling a lot better. She is lightheaded and dizzy when she walks. It sounds like she is taking her amitriptyline for 2-3 days at a time then off for 5-7 days. It seems related to the amitriptyline however it could be new onset seizures. Will discuss with Neurology further plan. 03/04/23 0815 Was called to the patient's room for rapid response. Patient was actively convulsing in bed. She would not respond was stiff as a board. Patient was given 1 mg of Ativan however was still having some twitching and convulsion and was given an additional dose of Ativan. Convulsions have stopped and patient was resting comfortably. Patient did give a thumbs-up however was unable to speak. Patient also did shake her head as well. Due to current medical condition patient was unable to give a complete review of systems. Started patient on 1 g of Keppra for loading dose and 500 mg twice a day. Also talked to Dr. Gastelum about current recent events. EEG was performed and Dr. Gastelum stated that he would evaluate the patient here soon. He also agreed with the Keppra at this time. Dr. Cabello was also present through the rapid response and had agreed with the management and plan of starting the Keppra. Prolactin was also drawn awaiting value. Patient's mother was present and update was given to her for plan of care along with next steps of care. All questions were answered. 03/03/23? 23:21 This is a 17-year-old year old female patient has no prior history of any seizure activity.? The patient states that she does not use any alcohol and has not tried any
--- NOTE | 2023-03-06 11:54 | P.PNNEUR_ITS ---
Subjective Date/time seen: 03/06/23 11:54 Interval history: 17 years old right-handed female with ongoing anxiety and recurrent seizures which responded to IM diazepam in the 1st 24 to 36 hours had another breakthrough seizure this morning, discussed with the mother that she will needs to be transferred to the [facility] care for video telemetry to make the decision whether we are dealing with a really seizure disorder or anxiety related seizures it is better to have the monitoring done at this particular time for that she does not get overloaded with multiple anticonvulsants considering her age at this particular time so she will be transferred to the tertiary [facility] center for video telemetry mother understood and agrees Exam Narrative: laying in bed just had an episode of seizure witnessed by the family as well as the medical staff. Easily arousable on simple sternal rub and opens the though tries not to follow the verbal commands. Moving upper and lower extremities spontaneously only intermittent and irregularly reflexes are sluggish and plantar responses are downgoing. Objective Data Vital Signs Vital Signs: Vital Signs - 24 hr 03/05/23 14:00 03/05/23 12:00 03/05/23 16:00 Temperature 36.3 C L Pulse Rate 95 110 H 111 H Respiratory Rate 16 Blood Pressure 94/52 L Pulse Oximetry 98 Oxygen Delivery 03/05/23 20:00 03/05/23 20:00 03/05/23 21:49 Temperature 36.7 C Pulse Rate 95 94 Respiratory Rate 20 Blood Pressure 104/54 L Pulse Oximetry 99 Oxygen Delivery Room Air 03/06/23 00:00 03/06/23 04:00 03/06/23 06:00 Temperature 36.7 C Pulse Rate 80 86 73 Respiratory Rate 21 H Blood Pressure 100/63 Pulse Oximetry 100 Oxygen Delivery 03/06/23 07:55 Temperature Pulse Rate Respiratory Rate Blood Pressure Pulse Oximetry Oxygen Delivery Room Air Intake/Output Intake/Output: Intake & Output 03/03/23 03/04/23 03/05/23 03/06/23 23:59 23:59 23:59 23:59 Intake Total 1000 1120 3100 820 Output Total 100 Balance 1000 1020 3100 820 Meds/Results Medications: Active Medications Generic Name Dose Route Start Last Admin Trade Name Freq PRN Reason Stop Dose Admin Albuterol 2 puff 03/05/23 15:04 03/05/23 15:24 Albuterol Sulfate (*Sp) Aerosol 1 Puff INHALATION 2 puff Q6HRT PRN Administration Shortness Of Breath Diazepam 5 mg 03/05/23 21:00 03/06/23 09:25 Diazepam (*Crx) 5 Mg Tablet PO 5 mg Q12HR SERVANDO Administration Levetiracetam 500 mg in 100 mls @ 400 mls/hr 03/04/23 21:00 03/06/23 09:40 Keppra Iv IVPB Infused Q12HR SERVANDO Infusion Lorazepam 1 mg 03/04/23 10:48 03/06/23 10:50 Lorazepam Inj (*Crx) 2 Mg/Ml Vial IV PUSH 1 mg Q6H PRN Administration Anxiety and siezures Radiology Results: ITS Impressions Brain MRI 03/04/23 07:21 IMPRESSION: Unremarkable exam. Amg Follow-up Billing Hospital Follow-up Hospital Follow-up: [id number] [address]
--- NOTE | 2023-03-06 14:04 | P.TS_ITS ---
Transfer Discharge Sum: Prov Provider Date of admission: 03/05/23 11:03 Primary care physician: PHYSICIAN NOT ON STAFF Admitting clinician: Freddie Nieves MD Attending physician on admission: Freddie Nieves Consults: 03/04/23 06:34 Consult to Physician Routine Comment: Consulting Provider: Leobardo Gastelum call center receptionist/MD group to consult: Neurology Reason for consultation: Seizure activity Has provider been notified: Yes Attending physician on discharge: Ethan Merritt Discharging clinician: Benito Chambers Anticipated date of transfer: 03/06/23 Receiving physician/facility: [facility] with Dr. Rico DS: Admitting Diagnosis Discharge Date 03/06/23 Admitting Diagnosis Seizure DS: Discharge Diagnosis Discharge Diagnosis (1) New onset seizure: Code(s): R56.9 - Unspecified convulsions Status: Acute Assessment and Plan: * Presented with body stiffening, happened multiple times * Was seen at [facility], diagnosed with pseudoepileptic seizures * Witness seizure on 03/04/23, and 03/05/23 * Keppra 1000mg IV once for loading dose and 500mg IV BID for maintenance * Neuro consulted * Ativan on board * EEG normal record * MRI unremarkable * denies ETOH or drug use * UDS negative for any findings * Prolactin ordered and is pending * Echo normal (2) Anxiety: Code(s): F41.9 - Anxiety disorder, unspecified Status: Acute Assessment and Plan: * Takes the amitriptyline for sleep * advise patient to stop this medication at this time * Trend mood * adjust medication as indicated (3) Asthma: Code(s): J45.909 - Unspecified asthma, uncomplicated Status: Acute Assessment and Plan: * Continue home medications (4) Hypocalcemia: Code(s): E83.51 - Hypocalcemia Status: Acute Assessment and Plan: * Hypocalcemia can cause paresthesias, muscle spasms, cramps, tetany, and seizures. * TSH 2.180 * vitamin-D levels 19.9 * Ionized calcium still pending (5) Anemia: Code(s): D64.9 - Anemia, unspecified Status: Acute Assessment and Plan: * H/H 10.7/35.9 * anemia labs iron 18, TIBC 401, % saturation 4, transferrin 278, ferritin 5.49, vitamin B12 388, folate 9.3 * Supplement with iron 325 b.i.d. * trend labs * transfuse as indicated * appears to be iron deficiency anemia Transfer Discharge Sum: Med Medications Active and Home Medications: Home Medications amitriptyline 25 mg tablet 25 mg PO HS PRN Sleep 03/03/23 [History Confirmed 03/04/23] medroxyprogesterone 150 mg/mL intramuscular suspension 150 mg IM MONTHLY 03/03/23 [History Confirmed 03/04/23] mometasone 220 mcg/actuation(30 doses) breath activated powder inhaler (Asmanex Twisthaler) 1 inh inhalation DAILY 03/03/23 [History Confirmed 03/04/23] Active Medications Albuterol (Albuterol Sulfate (*Sp) Aerosol 1 Puff) 2 puff INHALATION Q6HRT PRN PRN Reason: Shortness Of Breath Last Admin: 03/05/23 15:24 Dose: 2 puff Diazepam (Diazepam (*Crx) 5 Mg Tablet) 5 mg PO Q12HR SERVANDO Last Admin: 03/06/23 09:25 Dose: 5 mg Levetiracetam (Keppra Iv) 500 mg
--- NOTE | 2023-03-06 14:04 | PM.TDS ---
Transfer Discharge Sum: Prov Provider Date of admission: 03/05/23 11:03 Primary care physician: PHYSICIAN NOT ON STAFF Admitting clinician: Freddie Nieves MD Attending physician on admission: Freddie Nieves Consults: 03/04/23 06:34 Consult to Physician Routine Comment: Consulting Provider: Leobardo Gastelum call person/MD group to consult: Neurology Reason for consultation: Seizure activity Has provider been notified: Yes Attending physician on discharge: Ethan Merritt Discharging clinician: Benito Chambers Anticipated date of transfer: 03/06/23 Receiving physician/facility: [facility] with Dr. Rico DS: Admitting Diagnosis Discharge Date 03/06/23 Admitting Diagnosis Seizure DS: Discharge Diagnosis Discharge Diagnosis (1) New onset seizure: Code(s): R56.9 - Unspecified convulsions Status: Acute Assessment and Plan: Presented with body stiffening, happened multiple times Was seen at [facility], diagnosed with pseudoepileptic seizures Witness seizure on 03/04/23, and 03/05/23 Keppra 1000mg IV once for loading dose and 500mg IV BID for maintenance Neuro consulted Ativan on board EEG normal record MRI unremarkable denies ETOH or drug use UDS negative for any findings Prolactin ordered and is pending Echo normal (2) Anxiety: Code(s): F41.9 - Anxiety disorder, unspecified Status: Acute Assessment and Plan: Takes the amitriptyline for sleep advise patient to stop this medication at this time Trend mood adjust medication as indicated (3) Asthma: Code(s): J45.909 - Unspecified asthma, uncomplicated Status: Acute Assessment and Plan: Continue home medications (4) Hypocalcemia: Code(s): E83.51 - Hypocalcemia Status: Acute Assessment and Plan: Hypocalcemia can cause paresthesias, muscle spasms, cramps, tetany, and seizures. TSH 2.180 vitamin-D levels 19.9 Ionized calcium still pending (5) Anemia: Code(s): D64.9 - Anemia, unspecified Status: Acute Assessment and Plan: H/H 10.7/35.9 anemia labs iron 18, TIBC 401, % saturation 4, transferrin 278, ferritin 5.49, vitamin B12 388, folate 9.3 Supplement with iron 325 b.i.d. trend labs transfuse as indicated appears to be iron deficiency anemia Transfer Discharge Sum: Med Medications Active and Home Medications: Home Medications amitriptyline 25 mg tablet 25 mg PO HS PRN Sleep 03/03/23 [History Confirmed 03/04/23] medroxyprogesterone 150 mg/mL intramuscular suspension 150 mg IM MONTHLY 03/03/23 [History Confirmed 03/04/23] mometasone 220 mcg/actuation(30 doses) breath activated powder inhaler (Asmanex Twisthaler) 1 inh inhalation DAILY 03/03/23 [History Confirmed 03/04/23] Active Medications Albuterol (Albuterol Sulfate (*Sp) Aerosol 1 Puff) 2 puff INHALATION Q6HRT PRN PRN Reason: Shortness Of Breath Last Admin: 03/05/23 15:24 Dose: 2 puff Diazepam (Diazepam (*Crx) 5 Mg Tablet) 5 mg PO Q12HR SERVANDO Last Admin: 03/06/23 09:25 Dose: 5 mg Levetiracetam (Keppra Iv) 500 mg in 100 mls @ 400 mls/hr IVPB Q12HR SERVANDO Last Infusion: 03/06/23 09:40 Dose: Infused Lorazepam (Lorazepam Inj (*Crx) 2 Mg/Ml Vial) 1 mg IV PUSH Q6H PRN PRN Reason: Anxiety and siezures Last Admin: 03/06/23 10:50 Dose: 1 mg Transfer Discharge Sum: Hosp Hospital Course Hospital course: Angel Mendes is a 17 year old female With a past medical history of asthma who presented to the ED with complaints of seizures that her recurrent. Patient was out with her friends when they noticed that her body got stiff and she was unresponsive. She was originally evaluated at [facility] and was told that these were pseudoseizures. Patient is having convulsing type episodes about every 12 hours. Patient was given Ativan. Neurology had consulte
[2023-03-06] MEDS: ALBUTEROL SULFATE (*SP) AEROSOL 1 PUFF 2 PUFF INHALATION (17:00)
--- NOTE | 2023-03-06 17:28 | PCRCNOTE ---
RT called to give inhaler to pt due to SOB post seizure. PRN inhaler given at 1700.
--- NOTE | 2023-03-06 17:59 | PC.NURSE ---
Patient had another seizure around 1630. Medication given (SEE MAR). Patient had two apneic episodes sating in the low 80's. Patient placed on 2L of oxygen. Oxygen saturation recovered quickly to 100%. Patient recovered from seizure in 15 minutes. Patient is sitting up, drinking water, following commands. No bitting of the tongue or cheeks during seizure.
--- NOTE | 2023-03-06 23:22 | PC.NURSE ---
Patient's mother called out at 2119 to alert staff that patient was seizing. This nurse went into room with MANDO Dye and witnessed patient turned to left side having a seizure. Pulse ox was obtained and patient was satting in mid-high 70's. 2LNC applied. Ativan was pulled and given and patient stopped seizing around 2128. Patient was having episodes of apnea and responding to painful stimuli. A few minutes later, around 2131, patients eyes opened up and she was able to correctly answer questions and follow commands, despite being drowsy and slow to respond. Patient's vitals returned to baseline and she was able to rest comfortably. At 2149, patient was back to baseline with the only residual being slow, weak speech.
[2023-03-07 04:14] LABS: Prolactin 18.8 ng/mL (***)
[2023-03-09 03:59] LABS: Prolactin 19.4 ng/mL (***)
== END 2023-03-06 23:05 | disposition short-term general hospital (02) | DRG 53 ==
LOC: ANHED 22:58 → ANH2MED 23:53
PROVIDERS: Nurse Practitioner; Admitting Provider Internal Medicine; Emergency Provider Emergency Medicine; Visit Provider Nurse Practitioner
DX: R56.9 Unspecified convulsions (principal); E83.51 Hypocalcemia; F41.9 Anxiety disorder, unspecified; J45.909 Unspecified asthma, uncomplicated; D50.9 Iron deficiency anemia, unspecified; F17.290 Nicotine dependence, other tobacco product, uncomplicated
CPT/HCPCS: 36415; 70553; 80048; 80053; 80307; 81003; 81025; 82306; 82330; 82607; 82728; 82746; 82948; 83540; 83550; 83735; 84146; 84443; 84466; 85025; 93005; 93306; 94640; 95816; 96360; 96365; 96374; 96375; 96376; 99285; A9270; A9577; G0378; G0379; J1953; J2060; J3360; J7030

== ENCOUNTER 2023-07-15 22:10 | Emergency (ER) | payer BC, SELFPAY ==
--- NOTE | ~2023-07-15 | XR_ITS ---
EXAMINATION: XR chest 2V Exam Date/Time: 07/15/2023 22:46 CDT HISTORY: MID CHEST PAINS RADIATING TO BACK, COUGH FOR 3 DAYS, ASTHMA Comparison: None. RESULT: Lines, tubes, and devices: None. Lungs and pleura: No pneumothorax or focal consolidation. Mild cuffing and trace reticulonodular opa cities. Cardiomediastinal silhouette: Stable. Other: No acute osseous or upper abdominal finding. IMPRESSION: Pulmonary opacities may represent bronchiolitis, as can be seen with atypical infection, asthma, aspi ration, and small airways disease. Reviewed, dictated and finalized at location K. IMPRESSION: Pulmonary opacities may represent bronchiolitis, as can be seen with atypical i nfection, asthma, aspiration, and small airways disease.
[2023-07-15 22:28] VITALS: BP 130/84; PULSE 62; RESP 98; TEMP 36.9; O2SAT 97
--- NOTE | 2023-07-15 22:28 | ECG_ITS ---
Measurements Intervals [place] Rate: 89 P: 70 [place]: 143 QRS: 79 QRSD: 81 T: 42 QT: 356 QTc: 434 Interpretive Statements SINUS RHYTHM NORMAL ECG COMPARED TO ECG 03/03/2023 19:46:57 NO SIGNIFICANT CHANGES Electronically Signed On 07-16-2023 9:17:51 CDT by Delvin Gilliam M.D.
[2023-07-15 22:42] LABS: Basophils Absolute Auto 0.1 K/mm3 (0.0-0.1); Basophils Percent Auto 0.8 % (0.2-1.2); Eosinophils Absolute Auto 0.1 K/mm3 (0-0.3); Eosinophils Percent Auto 2.3 % (0-4.4); Hematocrit 37.2 % (37.0-47.0); Hemoglobin 11.9 g/dL (12.0-15.0); Immature Granulocyte Absolute 0.02 K/mm3 (0.00-0.031); Immature Granulocyte Percent A 0.3 % (0-0.5); Lymphocytes Absolute Auto 1.35 K/mm3 (0.9-3.2); Lymphocytes Percent Auto 22.7 % (18.3-44.2); Mean Corpuscular Hemoglobin 26.5 pg (26-34); Mean Corpuscular Volume 82.9 fl (80-100); Mean Platelet Volume 8.5 fl (7.4-10.4); Monocytes Absolute Auto 0.9 K/mm3 (0.1-0.6); Monocytes Percent Auto 14.4 % (2.6-8.5); Neutrophils Absolute Auto 3.5 K/mm3 (1.3-6.7); Neutrophils Percent Auto 59.5 % (45.5-73.1); Platelet Count Result 319 k/mm3 (150-375); Red Blood Count 4.49 M/mm3 (4.2-5.4); Red Cell Distribution Width 13.6 % (11.5-14.5)
[2023-07-15 22:52] LABS: Alanine Aminotransferase 16 U/L (6-35); Albumin Level 4.6 g/dL (3.7-5.6); Alkaline Phosphatase 82 U/L (45-116); Anion Gap 10 mmol/L (8-16); Aspartate Amino Transferase 27 U/L (14-36); Bilirubin,Total 0.2 mg/dL (0.2-1.3); Blood Urea Nitrogen 8 mg/dL (8-21); Calcium 8.6 mg/dL (8.9-10.7); Carbon Dioxide 22 mmol/L (22-30); Chloride 106 mmol/L (98-107); Estimated CRCL calculation 128 ml/min; Estimated Glomerular Filt Rate > 60; Glucose 156 mg/dL (65-110); INR 1.1; Lipase 198 U/L (23-300); Potassium 3.5 mmol/L (3.4-5.0); Sodium 138 mmol/L (134-143)
[2023-07-15 23:03] LABS: Troponin I < 0.012 ng/mL (0.000-0.034)
--- NOTE | 2023-07-16 00:48 | PC.NURSE ---
Patient stated that she was leaving. Patient was directed to go nearest ED if chest pain gets worse.
== END 2023-07-16 00:48 | disposition left against medical advice (07) ==
PROVIDERS: Emergency Provider Emergency Medicine
DX: R07.9 Chest pain, unspecified (principal)
CPT/HCPCS: 36415; 71046; 80053; 83690; 84484; 85025; 85610; 85730; 93005; 99199

== ENCOUNTER 2025-08-29 15:56 | Emergency (ER) | payer BC, SELFPAY ==
[2025-08-29] VITALS (8 sets, daily range): BP systolic 104–119; BP diastolic 74–94; PULSE 78–113; RESP 11–20; TEMP 36.7–36.9; O2SAT 96–100
--- NOTE | ~2025-08-29 | XR_ITS ---
EXAMINATION: XR chest 2V, 08/29/2025 16:15 CDT HISTORY: cp, sob COMPARISON: No comparisons available. Technique: 2 views obtained. Findings: The lungs are clear, no effusion. No pneumothorax. Heart is normal size. Mediastinal and hilar contours are within normal limits. Bony thorax no acute abnormality. Impression: No acute cardiopulmonary abnormality. Reviewed, dictated and finalized at location P. Impression: No acute cardiopulmonary abnormality.
--- NOTE | ~2025-08-29 | CT_ITS ---
CTA chest PE protocol HISTORY:SOA/Right shoulder pain . COMPARISON: None. TECHNIQUE: Following the noncontrasted gas analyst, axial images of the thorax were obtained following infusion of 100 cc of Isovue 370. Post-processing on an independent workstation was performed to reconstruct MIP images for evaluation of the thoracic vasculature. FINDINGS: There is no pulmonary embolism, aortic dissection, thoracic aneurysm or pericardial fluid. The lung parenchyma is clear. No pleural effusion or pneumothorax is noted. There is no axillary, mediastinal or hilar adenopathy. Limited evaluation of the upper abdomen demonstrates no gross abnormalities. Review of bone windows demonstrates no osteoblastic or lytic lesions. IMPRESSION: There is no pulmonary embolism, aortic dissection, pericardial fluid or thoracic aneurysm. No acute lung findings. All CT scans at this facility are performed using low dose modulation techniques as appropriate to perform exam including the following: automated exposure control; use of iterative reconstruction technique; adjustment of the mA and/or kV according to patient size (this includes techniques or standardized protocols for targeted exams where dose is matched to indication/reason for exam). Reviewed, dictated and finalized at location S. IMPRESSION: There is no pulmonary embolism, aortic dissection, pericardial fluid or thoraci c aneurysm. No acute lung findings. All CT scans at this facility are performed using low dose modulation techniqu es as appropriate to perform exam including the following: automated exposure c ontrol; use of iterative reconstruction technique; adjustment of the mA and/or kV according to patient size (this includes techniques or standardized protocol s for targeted exams where dose is matched to indication/reason for exam).
--- NOTE | 2025-08-29 15:58 | ECG_ITS ---
Test Date: 2025-08-29 16:13:08 Measurements Intervals [place] Rate: 105 P: 72 [place]: 132 QRS: 66 QRSD: 77 T: 28 QT: 333 QTc: 441 Interpretive Statements SINUS TACHYCARDIA BORDERLINE ECG No previous ECG available for comparison Electronically Signed On 08-29-2025 16:30:27 CDT by Zen Louis D.O.
--- NOTE | 2025-08-29 16:14 | ED.CHESTPAIN ---
HPI - Chest Pain General Chief Complaint: Chest Pain <Benita Foster PA-C - Last Filed: 08/29/25 16:19> Stated Complaint: cough, congestion, CP <Benita Foster PA-C - Last Filed: 08/29/25 16:19> Time Seen by Provider: 08/29/25 16:14 <Benita Foster PA-C - Last Filed: 08/29/25 16:19> Focused HPI: Patient is a 20 y/o female who presents to the ED with c/o CP/SOB. Patient reports she has been sick over the past few days with productive cough, congestion, SOB. Reports chest pain with coughing and at rest. Reports SOB worse with exertion and with taking deep breaths. Was seen at her campus clinic and tested negative for strep, flu, covid, mono 2 days ago. Denies any known fevers. GENERAL: Mildly ill-appearing, thin, and in no acute distress. HEAD: Normocephalic, atraumatic. CHEST: No respiratory distress. Frequent coughing. No significant focal lung sounds. HEART: Tachycardic with regular rhythm.? NEURO: ?Alert and oriented x3. Patient screened in triage and initial orders placed.? ?Additional care and disposition to be based upon?diagnostic testing and treatment. <Benita Foster PA-C - Last Filed: 08/29/25 16:19> Source: patient <Benita Foster PA-C - Last Filed: 08/29/25 16:19> Mode of arrival: ambulatory <Benita Foster PA-C - Last Filed: 08/29/25 16:19> Limitations: no limitations <JACLYN Reyes Last Filed: 08/29/25 16:19> History of Present Illness HPI narrative: Agree the HPI. Pain in the right upper chest and shoulder associated with coughing and deep breath. Mild shortness of breath. She is on control. No leg swelling. No history of PE. <Pro Méndez MD - Last Filed: 08/29/25 21:33> Related Data Home Medications: Home Medications ?Medication ?Instructions ?Recorded ?Confirmed ?Last Taken ?Type amitriptyline 25 mg tablet 25 mg PO HS PRN Sleep 03/03/23 03/04/23 Unknown History medroxyprogesterone 150 mg/mL 150 mg IM MONTHLY 03/03/23 03/04/23 Unknown History intramuscular suspension mometasone 220 mcg/actuation(30 1 inh inhalation DAILY 03/03/23 03/04/23 Unknown History doses) breath activated powder inhaler (Asmanex Twisthaler) <Benita Foster PA-C - Last Filed: 08/29/25 16:19> Allergies/Adverse Reactions: Allergies Allergy/AdvReac Type Severity Reaction Status Date / Time No Known Allergies Allergy Verified 08/13/22 20:29 <Benita Foster PA-C - Last Filed: 08/29/25 16:19> Review of Systems Review of Systems: All systems reviewed & are unremarkable except as noted in HPI and below <Pro Méndez MD - Last Filed: 08/29/25 21:33> Constitutional: Constitutional: Reports no additional constitutional complaints <Pro Méndez MD - Last Filed: 08/29/25 21:33> ENT: Reports system reviewed and no additional complaints, except as documented <Pro Méndez MD - Last Filed: 08/29/25 21:33> Cardiovascular: Cardiovascular: Reports no additional cardiovascular complaints <Pro Méndez MD - Last Filed: 08/29/25 21:33> Respiratory: Respiratory: Reports no additional respiratory complaints <Pro Méndez MD - Last Filed: 08/29/25 21:33> Musculoskeletal: Musculoskeletal: Reports no additional musculoskeletal complaints <Pro Méndez MD - Last Filed: 08/29/25 21:33> [facility] Past Medical History Medical History: Medical History (Updated 08/29/25 @ 21:27 by Pro Méndez MD) Precordial catch syndrome Asthma <Benita Foster PA-C - Last Filed: 08/29/25 16:19> Family History Family History: Family History Mother Diabetes mellitus ALINA on CPAP Anemia <JACLYN Reyes Last Filed: 08/29/25 16:19> Social History Social History: Social History (Updated 03/03/23 @ 23:52 by Nirmala Arceo APRN) Social History: The patient lives with her mother and she attends [employer] and she is majoring in Education. She has no children. She is single. She denies any drugs or alcohol. Code status full code Smoking status: Never smoker Tobacco type: e-cigarettes/vaping Alcohol intake: never Alcohol use details: occasional Substance use: never Lack of Transportation: No Lack of Food: Never True Current Housing: I Have Housing Concerned About Future Housing: No Difficulty Paying Gas/Electric Bills: No Difficulty Paying for Meds: No Currently Unemployed: No Education: High School Diploma/GED Difficulty w/ Childcare or Family Care: No Spiritual care concerns: No <Benita Foster PA-C - Last Filed: 08/29/25 16:19> Exam Narrative: GENERAL: Uncomfortable-appearing, well-nourished, and in no acute distress. HEAD: Normocephalic, atraumatic. ENT: Mucous membranes moist. CHEST: Clear to auscultation. No respiratory distress. HEART: Regular rate and rhythm. Normal peripheral pulses. ABDOMEN: Soft, nontender, nondistended. EXTREMITIES: Normal range of motion. No edema. SKIN: Warm, dry, no rash. NEURO: Alert and oriented x3. PSYCH: Normal mood and affect. <Pro Méndez MD - Last Filed: 08/29/25 21:33> Course Course Emergency Course: Patient resting comfortably after Toradol. No additional pain. No PE. No pneumonia. Appropriate for discharge. <Pro Méndez MD - Last Filed: 08/29/25 21:33> Vital Signs Vital signs: Vital Signs Temperature 98.5 F 08/29/25 16:09 Pulse Rate 113 H 08/29/25 16:09 Respiratory Rate 16 08/29/25 16:09 Blood Pressure 104/79 08/29/25 16:09 Pulse Oximetry 96 08/29/25 16:09 Oxygen Delivery Room Air 08/29/25 16:09 Temperature 98.1 F 08/29/25 18:28 Pulse Rate 78 08/29/25 20:58 Respiratory Rate 20 08/29/25 20:58 Blood Pressure 114/74 08/29/25 20:58 Pulse Oximetry 100 08/29/25 20:58 Oxygen Delivery Room Air 08/29/25 19:29 <Benita Foster PA-C - Last Filed: 08/29/25 16:19> Vital Signs Temperature 98.5 F 08/29/25 16:09 Pulse Rate 113 H 08/29/25 16:09 Respiratory Rate 16 08/29/25 16:09 Blood Pressure 104/79 08/29/25 16:09 Pulse Oximetry 96 08/29/25 16:09 Oxygen Delivery Room Air 08/29/25 16:09 Temperature 98.1 F 08/29/25 18:28 Pulse Rate 78 08/29/25 20:58 Respiratory Rate 20 08/29/25 20:58 Blood Pressure 114/74 08/29/25 20:58 Pulse Oximetry 100 08/29/25 20:58 Oxygen Delivery Room Air 08/29/25 19:29 <Pro Méndez MD - Last Filed: 08/29/25 21:33> MDM - Chest Pain MDM Narrative Medical decision making narrative: MSE by EUSEBIA in triage. <Benita Foster PA-C - Last Filed: 08/29/25 16:19> Lab Data Result diagrams: 08/29/25 16:19 08/29/25 16:19 <Benita Foster PA-C - Last Filed: 08/29/25 16:19> Labs: Lab Results 08/29/25 08/29/25 08/29/25 Range/Units 16:19 19:31 20:30 WBC 8.3 (4.5-10.0) K/mm3 RBC 4.76 (4.2-5.4) M/mm3 Hgb 13.1 (12.0-15.0) g/dL Hct 40.7 (37.0-47.0) % MCV 85.5 (80-100) fl MCH 27.5 (26-34) pg MCHC 32.2 (32-36) g/dl RDW 12.3 (11.5-14.5) % Plt Count 340 (150-375) k/mm3 MPV 8.3 (7.4-10.4) fl Immature Gran % (Auto) 0.4 (0-0.5) % Neut % (Auto) 68.0 (45.5-73.1) % Lymph % (Auto) 16.5 L (18.3-44.2) % [place] % (Auto) 12.5 H (2.6-8.5) % Eos % (Auto) 2.1 (0-4.4) % Baso % (Auto) 0.5 (0.2-1.2) % Lymph # (Auto) 1.36 (0.9-3.2) K/mm3 [place] # (Auto) 1.0 H (0.1-0.6) K/mm3 Eos # (Auto) 0.2 (0-0.3) K/mm3 Baso # (Auto) 0.0 (0.0-0.1) K/mm3 Abs Immat Gran (auto) 0.03 (0.00-0.031) K/mm3 Absolute Neuts (auto) 5.6 (1.3-6.7) K/mm3 Absolute Nucleated RBC 0.000 (0.0-0.012) K/mm3 Nucleated RBC % 0.0 (0.0-0.2) % PT 14.8 H (11.1-14.7) Seconds INR 1.2 APTT 27.1 (22.3-36.8) Seconds D-Dimer < 0.27 (<0.48) ug/mL Sodium 137 (137-145) mmol/L Potassium 4.1 (3.4-5.0) mmol/L Chloride 106 (98-107) mmol/L Carbon Dioxide 24 (22-30) mmol/L Anion Gap 7 (4-12) mmol/L BUN 11 (7-17) mg/dL Creatinine 0.67 L (0.7-1.0) mg/dL Estim Creat Clear Calc 103 ml/min Estimated GFR > 60 (59 - ) Glucose 108 (65-110) mg/dL Calcium 8.9 (8.4-10.2) mg/dL Total Bilirubin 0.4 (0.2-1.3) mg/dL AST 30 (14-36) U/L ALT 20 (6-35) U/L Alkaline Phosphatase 86 (38-126) U/L Troponin I < 0.012 < 0.012 (0.000-0.034) ng/mL Total Protein 7.7 (6.3-8.2) g/dL Albumin 4.1 (3.5-5.1) g/dL Lipase 156 (23-300) U/L POC Urine HCG, Qual Negative (Negative) Influenza A (RT-PCR) Negative (Negative) Influenza B (RT-PCR) Negative (Negative) RSV (RT-PCR) Negative (Negative) SARS-CoV-2 RNA (RT-PCR) Negative (Negative) <Benita Foster PA-C - Last Filed: 08/29/25 16:19> Lab Results 08/29/25 08/29/25 08/29/25 Range/Units 16:19 19:31 20:30 WBC 8.3 (4.5-10.0) K/mm3 RBC 4.76 (4.2-5.4) M/mm3 Hgb 13.1 (12.0-15.0) g/dL Hct 40.7 (37.0-47.0) % MCV 85.5 (80-100) fl MCH 27.5 (26-34) pg MCHC 32.2 (32-36) g/dl RDW 12.3 (11.5-14.5) % Plt Count 340 (150-375) k/mm3 MPV 8.3 (7.4-10.4) fl Immature Gran % (Auto) 0.4 (0-0.5) % Neut % (Auto) 68.0 (45.5-73.1) % Lymph % (Auto) 16.5 L (18.3-44.2) % [place] % (Auto) 12.5 H (2.6-8.5) % Eos % (Auto) 2.1 (0-4.4) % Baso % (Auto) 0.5 (0.2-1.2) % Lymph # (Auto) 1.36 (0.9-3.2) K/mm3 [place] # (Auto) 1.0 H (0.1-0.6) K/mm3 Eos # (Auto) 0.2 (0-0.3) K/mm3 Baso # (Auto) 0.0 (0.0-0.1) K/mm3 Abs Immat Gran (auto) 0.03 (0.00-0.031) K/mm3 Absolute Neuts (auto) 5.6 (1.3-6.7) K/mm3 Absolute Nucleated RBC 0.000 (0.0-0.012) K/mm3 Nucleated RBC % 0.0 (0.0-0.2) % PT 14.8 H (11.1-14.7) Seconds INR 1.2 APTT 27.1 (22.3-36.8) Seconds D-Dimer < 0.27 (<0.48) ug/mL Sodium 137 (137-145) mmol/L Potassium 4.1 (3.4-5.0) mmol/L Chloride 106 (98-107) mmol/L Carbon Dioxide 24 (22-30) mmol/L Anion Gap 7 (4-12) mmol/L BUN 11 (7-17) mg/dL Creatinine 0.67 L (0.7-1.0) mg/dL Estim Creat Clear Calc 103 ml/min Estimated GFR > 60 (59 - ) Glucose 108 (65-110) mg/dL Calcium 8.9 (8.4-10.2) mg/dL Total Bilirubin 0.4 (0.2-1.3) mg/dL AST 30 (14-36) U/L ALT 20 (6-35) U/L Alkaline Phosphatase 86 (38-126) U/L Troponin I < 0.012 < 0.012 (0.000-0.034) ng/mL Total Protein 7.7 (6.3-8.2) g/dL Albumin 4.1 (3.5-5.1) g/dL Lipase 156 (23-300) U/L POC Urine HCG, Qual Negative (Negative) Influenza A (RT-PCR) Negative (Negative) Influenza B (RT-PCR) Negative (Negative) RSV (RT-PCR) Negative (Negative) SARS-CoV-2 RNA (RT-PCR) Negative (Negative) <Pro Méndez MD - Last Filed: 08/29/25 21:33> Imaging Data Radiologist's impression: ITS Impressions Chest X-Ray 08/29/25 16:29 Impression: No acute cardiopulmonary abnormality. Chest CTA 08/29/25 20:48 IMPRESSION: There is no pulmonary embolism, aortic dissection, pericardial fluid or thoracic aneurysm. No acute lung findings. All CT scans at this facility are performed using low dose modulation techniques as appropriate to perform exam including the following: automated exposure control; use of iterative reconstruction technique; adjustment of the mA and/or kV according to patient size (this includes techniques or standardized protocols for targeted exams where dose is matched to indication/reason for exam). <Pro Méndez MD - Last Filed: 08/29/25 21:33> ECG Data EKG #1: ECG completion date: 08/29/25 <Pro Méndez MD - Last Filed: 08/29/25 21:33> ECG completion time: 19:24 <Pro Méndez MD - Last Filed: 08/29/25 21:33> EKG Interpretation: normal rate (90), sinus rhythm, no ectopy, normal QRS, normal QT and NL axis <Pro Méndez MD - Last Filed: 08/29/25 21:33> Discharge Plan Discharge Clinical Impression: Pleurisy <Benita Foster PA-C - Last Filed: 08/29/25 16:19> Patient Disposition: Home <Benita Foster PA-C - Last Filed: 08/29/25 16:19> Condition: Stable <Benita Foster PA-C - Last Filed: 08/29/25 16:19> Instructions: Antibiotic Form, Pleurisy (ED) <Benita Foster PA-C - Last Filed: 08/29/25 16:19> Additional Instructions: Please return to the emergency department if you develop severe and persistent chest pain, difficulty breathing, dizziness, leg swelling or if you are coughing up blood as these can be signs of a medical emergency. Please call your doctor for a follow up appointment to determine the need for further testing. <JACLYN Reyes Last Filed: 08/29/25 16:19> Patient Language: Croatian <JACLYN Reyes Last Filed: 08/29/25 16:19> Prescriptions: New naproxen 375 mg tablet 375 mg PO BID Qty: 14 0RF No Action amitriptyline 25 mg tablet 25 mg PO HS PRN (Reason: Sleep) medroxyprogesterone 150 mg/mL suspension 150 mg IM MONTHLY Rx Instructions: JUST TOOK Asmanex Twisthaler 220 mcg/ actuation (30) aerosol powdr breath activated 1 inh INHALATION DAILY <Benita Foster PA-C - Last Filed: 08/29/25 16:19> Follow-up/Referrals: PHYSICIAN NOT ON STAFF,NONSTAFF [Primary Care Provider] - 1 Week <Benita Foster PA-C - Last Filed: 08/29/25 16:19>
--- OUTSIDE RECORDS SUMMARY | 2025-08-29 16:14 | XMS_ITS | Data Portability ---
Author Organization [facility], [address] [facility] ([place]) Address [address] 4th [place] [address] Care Team Providers Care Potter Or Ceramic Artist Name Role Phone LEERYLEY Primary Care Provider Assessment Encounter Date Assessment Date Assessment LastModified by Organization Details LastModified Time 03/26/2024 03/26/2024 ASSESSMENT AND PLAN: 1. Patient comes to clinic today for her annual exam. I reviewed the [facility] form with her. She voiced understanding of the recommendations for her age and agrees to comply. 2. Patient has received her Gardasil vaccinations. 3. She is on Depo-Provera for contraception. We discussed thre importance of having 1200 mg calcium a day plus vitamin D. I also encouraged weightbearing exercise. She does exercise. 4. I reviewed the importance of condoms for safe sex protection. 5. Patient will return to clinic yearly and p.r.n. She voiced understanding and agreed with the plan. [email or web address] Not available 03/30/2024 15:36:28 05/07/2024 05/07/2024 The patient had a left vulvar lesion. It has improved and is almost resolved. We will just continue with expected management. She voiced understanding and agreed with the plan. [email or web address] Not available 05/08/2024 11:42:08 07/22/2025 07/22/2025 HISTORY OF PRESE NT ILLNESS: The patient is a 19-year-old white female who comes to the clinic today for her annual exam. She is doing well. She has no complaints at this time. She has had two of the series of HPV vaccination. She is not sexually active at this time. She is using Depo Provera. She is not having any menses on it. She would like to continue on it. She declines STD testing today. She denies any pelvic pain or any abnormal discharge. She has normal bowel and bladder function. 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 She is attending [employer] and that is going well. She has no other questions or concerns at this time. REVIEW OF SYSTEMS: Patient history from today's date has been reviewed, signed and scanned. All updates have been added to the chart. Please refer to this form for review of the past medical history, family history, surgical history, social history, and review of systems. PHYSICAL EXAMINATION: CONST: Alert and oriented. Patient is interactive. EYES: No icterus. No redness. Pupils equal and reactive to light. ENT: Tympanic membranes are clear. Oropharynx is clear. Neck is supple. No lymphadenopathy, no thyromegaly. RESP: Breathing appears normal. No use of accessory muscles. Clear to auscultation bilaterally without wheezes, rhonchi or rales. CV: Regular rate and rhythm without murmur, click or rub. ABDOMEN: Nondistended. Bowel sounds positive, soft, nontender. No masses. No hepatosplenomegaly . : Pelvic exam: Normal female external genitalia. Introitus is marital. Urethra appears normal. There is no cystocele or rectocele. On speculum exam the cervix is visualized, and it is pink and moist. Vaginal mucosa is pink and moist. A Pap smear was performed. On bimanual, there are no pelvic masses, uterus small, nontender, mobile. There is no inguinal lymphadenopathy. MSK: Extremities appear normal. Extremities without clubbing or edema. SKIN: No cyanosis. Warm and dry. No jaundice. BREAST: Symmetrical, bilaterally. Nipples are everted. There are no skin discolorations or lesions noted. There are no masses to palpation. The importance of self-breast exam is reinforced at this time. There is no axillary or supraclavicular lymphadenopathy. PSYCH: Stable mood and affect. NEURO: No speech difficulty. Reviewed pertinent diagnostic tests, lab work, and imaging. These were reviewed with the patient. ASSESSMENT AND PLAN: 1. The patient comes to the clinic today for her annual exam. I reviewed the [employer] [facility] [employer] form with her. She voiced understanding of the recommendations for her age and agrees to comply. 2. She will check her gardasil vaccinations with her mother to make sure she completed the series. 3. I reviewed that there is a [place] study indicating that there is and increased risk of benign brain tumors called meningiomas with Depo Provera use. ACOG currently recommends that patients be informed, but that they can continue on it if they desire and are aware of the risk. Teressa would like to continue on it. She will make sure she get 1200 mg of calcium daily. She will return to the clinic yearly and p.r.n. [email or web address] Not available 07/23/2025 21:07:33 Plan of Treatment Reminders Order Date Submit Date Provider Last Modified By Organization Details Last Modified Time Details Appointments Annual Well Woman Visit 15.EST 2025 02:15P M Dr. Abby Trjeo Not available Not available Not available Lab cytology report, smear or scraping, cervical or vaginal 2024 025 MACK [facility], [address] [place] [address], [id number], 08/05/2025 17:24:31 Referral None recorded. Procedures None recorded. Surgeries None recorded. Imaging None recorded. Medication Orders medroxypr ogesteron e 150 mg/mL intramusc ular syringe 2023 024 [id number], [address] [facility], [place], [place], [id number], 06/23/2024 14:11:51 Patient TargetsNo targets recorded. Patient InstructionsNo instructions recorded. Reason for Referral None Reported. Results Created Date Observation Date Name Description Value Unit Range Abnormal Flag Note LastModifiedBy Organization Detail LastModifiedTime 06/01/2006/01/2024 C-sanya ctive prote in, quant itati ve, serum or plasm a CRP Not Available [facility] [address] [place] [address], [id number], 06/01/2024 19:24:46 06/01/20 24 06/01/2024 C-sanya ctive prote in, quant itati ve, serum or plasm a CRP <0.4 mg/dL <0.4-0 .5 Not Available [facility] - [facility] [address] [place] [address], [id number], 06/01/2024 19:24:46 06/01/20 24 06/02/2024 wheat ige, serum wheat (F4) allergen Not Available [facility] [address] [place] [address], [id number], 06/02/2024 13:45:39 06/01/20 24 06/02/2024 wheat ige, serum wheat 0.19 kU/L high Not Available [facility] - [facility] [address] [place] [address], [id number], 06/02/2024 13:45:39 06/01/20 24 06/02/2024 wheat ige, serum class; wheat 0/1 Speci fic Level of Aller gen IgE Class kU/L Speci fic IgE Antib edith ----- ----- ----- ----- ----- ----- ----- ----- ----- ----- 0 <0.10 Absen t/Und etect able 1 0.10- 0.70 Low Level 2 0.71- 3.50 Moder ate Level 3 3.51- 17.5 High Level 4 17.6- 50 Very High Level 5 51-10 0 Very High Level 6 >100 Very High Level Not Available [facility] [address] [place] [address], [id number], 06/02/2024 13:45:39 06/01/20 24 06/05/2024 glute n ige, serum gluten (F79) allergen Not Available [facility] [address] [place] [address], [id number], 06/05/2024 14:38:53 06/01/20 24 06/05/2024 glute n ige, serum gluten IgE allergen <0.10 kU/L class 0 Not Available [facility] [address] [place] [address], [id number], 06/05/2024 14:38:53 06/01/20 24 06/05/2024 tomat o ige, serum tomato (F25) allergen Not Available [facility] [address] [place] [address], [id number], 06/05/2024 14:38:54 06/01/20 24 06/05/2024 tomat o ige, serum tomato IgE allergen <0.10 kU/L class 0 Level s of Speci fic IgE Class Descr iptio n of Class ----- ----- ----- ----- ----- -- ----- ----- ----- ----- ----- < 0.10 0 Negat minna 0.10 - 0.31 0/I Equiv ocal/ Low 0.32 - 0.55 I Low 0.56 - 1.40 II Moder ate 1.41 - 3.90 III High 3.91 - 19.00 IV Very High 19.01 - 100.0 0 V Very High >100. 00 Very High Not Available [facility] [address] [place] [address], [id number], 06/05/2024 14:38:54 06/01/20 24 06/05/2024 black peppe r IgE Ab, serum black pepper (F280) aller Not Available [facility] [address] [place] [address], [id number], 06/05/2024 14:38:56 06/01/20 24 06/05/2024 black peppe r IgE Ab, serum black pepper (F280) IgE <0.10 kU/L class 0 Not Available [facility] [address] [place] [address], [id number], 06/05/2024 14:38:56 06/01/20 24 06/02/2024 corn ige, serum corn (F8) allergen Not Available [facility] [address] [place] [address], [id number], 06/02/2024 13:45:38 06/01/20 24 06/02/2024 corn ige, serum corn (F8) IgE <0.10 kU/L Not Available [facility] [address] [place] [address], [id number], 06/02/2024 13:45:38 06/01/20 24 06/02/2024 corn ige, serum class; corn 0 Speci fic Level of Aller gen IgE Class kU/L Speci fic IgE Antib edith ----- ----- ----- ----- ----- ----- ----- ----- ----- ----- 0 <0.10 Absen t/Und etect able 1 0.10- 0.70 Low Level 2 0.71- 3.50 Moder ate Level 3 3.51- 17.5 High Level 4 17.6- 50 Very High Level 5 51-10 0 Very High Level 6 >100 Very High Level Not Available [facility] - [facility] [address] [place] [address], [id number], 06/02/2024 13:45:38 06/01/20 24 06/02/2024 milk ige, serum milk (F2) allergen Not Available [facility] [address] [place] [address], [id number], 06/02/2024 13:45:36 06/01/20 24 06/02/2024 milk ige, serum milk <0.10 kU/L Not Available [facility] [address] [place] [address], [id number], 06/02/2024 13:45:36 06/01/20 24 06/02/2024 milk ige, serum class; milk 0 Speci fic Level of Aller gen IgE Class kU/L Speci fic IgE Antib edith ----- ----- ----- ----- ----- ----- ----- ----- ----- ----- 0 <0.10 Absen t/Und etect able 1 0.10- 0.70 Low Level 2 0.71- 3.50 Moder ate Level 3 3.51- 17.5 High Level 4 17.6- 50 Very High Level 5 51-10 0 Very High Level 6 >100 Very High Level Not Available [facility] [address] [place] [address], [id number], 06/02/2024 13:45:36 06/01/20 24 06/01/2024 ESR (eryt hrocy te sedim entat ion rate) , blood sed rate 7 mm/HR 0 - 20 Not Available [facility] [address] [place] [address], [id number], 06/01/2024 18:56:41 06/01/20 24 06/01/2024 CBC w/ auto diff CBC with differential Not Available [facility] [address] [place] [address], [id number], 06/01/2024 18:44:45 06/01/20 24 06/01/2024 CBC w/ auto diff WBC 6.9 K/uL 3.8-11 .2 Not Available [facility] [address] [place] [address], [id number], 06/01/2024 18:44:45 06/01/20 24 06/01/2024 CBC w/ auto diff RBC 4.89 M/uL 3.92-5 .10 Not Available [facility] [address] [place] [address], [id number], 06/01/2024 18:44:45 06/01/20 24 06/01/2024 CBC w/ auto diff HGB 13.7 g/dL 11.8-1 5.3 Not Available [facility] [address] [place] [address], [id number], 06/01/2024 18:44:45 06/01/20 24 06/01/2024 CBC w/ auto diff HCT 40.9 % 36.5-4 4.8 Not Available [facility] [address] [place] [address], [id number], 06/01/2024 18:44:45 06/01/20 24 06/01/2024 CBC w/ auto diff MCV 83.6 fL 80.0-9 9.0 Not Available [facility] [address] [place] [address], [id number], 06/01/2024 18:44:45 06/01/20 24 06/01/2024 CBC w/ auto diff MCH 28.0 pg 25.5-3 3.6 Not Available [facility] [address] [place] [address], [id number], 06/01/2024 18:44:45 06/01/20 24 06/01/2024 CBC w/ auto diff MCHC 33.5 g/dL 32.0-3 6.0 Not Available [facility] [address] [place] [address], [id number], 06/01/2024 18:44:45 06/01/20 24 06/01/2024 CBC w/ auto diff RDW-SD 37.2 fL 35.1 - 46.3 Not Available [facility] [address] [place] [address], [id number], 06/01/2024 18:44:45 06/01/20 24 06/01/2024 CBC w/ auto diff plt 393 K/uL 130-40 0 Not Available [facility] [address] [place] [address], [id number], 06/01/2024 18:44:45 06/01/20 24 06/01/2024 CBC w/ auto diff MPV 9.0 fL 9.3-12 .8 low Not Available [facility] [address] [place] [address], [id number], 06/01/2024 18:44:45 06/01/20 24 06/01/2024 CBC w/ auto diff chely% 59.2 % 39.8-7 1.3 Not Available [facility] [address] [place] [address], [id number], 06/01/2024 18:44:45 06/01/20 24 06/01/2024 CBC w/ auto diff lym% 27.2 % 19.2-4 7.1 Not Available [facility] [address] [place] [address], [id number], 06/01/2024 18:44:45 06/01/20 24 06/01/2024 CBC w/ auto diff mono% 8.6 % 1.7-12 .0 Not Available [facility] [address] [place] [address], [id number], 06/01/2024 18:44:45 06/01/20 24 06/01/2024 CBC w/ auto diff eos% 3.8 % 0.0-12 .0 Not Available [facility] [address] [place] [address], [id number], 06/01/2024 18:44:45 06/01/20 24 06/01/2024 CBC w/ auto diff baso% 0.9 % 0.0-3. 0 Not Available [facility] [address] [place] [address], [id number], 06/01/2024 18:44:45 06/01/20 24 06/01/2024 CBC w/ auto diff abs chely 4.1 K/uL 1.8-7. 5 Not Available [facility] [address] [place] [address], [id number], 06/01/2024 18:44:45 06/01/20 24 06/01/2024 CBC w/ auto diff abs lym 1.9 K/uL 1.1-3. 3 Not Available [facility] [address] [place] [address], [id number], 06/01/2024 18:44:45 06/01/20 24 06/01/2024 CBC w/ auto diff abs mono 0.6 K/uL 0.1-1. 0 Not Available [facility] [address] [place] [address], [id number], 06/01/2024 18:44:45 06/01/20 24 06/01/2024 CBC w/ auto diff abs eos 0.3 K/uL 0.0-0. 7 Not Available [facility] [address] [place] [address], [id number], 06/01/2024 18:44:45 06/01/20 24 06/01/2024 CBC w/ auto diff abs baso 0.1 K/uL 0.0-0. 2 Not Available [facility] [address] [place] [address], [id number], 06/01/2024 18:44:45 06/01/20 24 06/01/2024 CBC w/ auto diff imm. gran % 0.3 % 0.0-3. 0 Not Available [facility] [address] [place] [address], [id number], 06/01/2024 18:44:45 06/01/20 24 06/01/2024 CBC w/ auto diff NRBC % 0.0 % 0.0-0. 2 Not Available [facility] [address] [place] [address], [id number], 06/01/2024 18:44:45 07/22/20 25 07/22/2025 GYNEC OLOGI C CYTOL OGY REPOR T creative services specialist/aC Perfo rmed at[facility] Order ing Provi elgin: Matheus Trejo nt Name: EDDIE GIVENS Acces hunter #: [id number] /A ge/Ge nder: 08/27 (Age: 19) / F Proce dure Date: 025 SP ECIME N RECEI TARIQ * SureP ath Pap Only, Cervi radha/E ndoce rvica l Speci men Adequ acy Satis facto ry for evalu ation Endoc ervic al cell/ trans forma tion zone compo nent prese nt Cytol ogic Diagn osis Negat minna for intra epith elial lesio n or malig ehsan APPLICATION TECHNICAL DESIGNER EL ECTRO NICAL LY VERIF IED BY [facility] E, CT( CP) * 2024 14:45 CL INICA L/MEN STRUA L HISTO RY Menst rual Hx: Ameno rrhea Contr acept minna Histo ry: Depo Prove ra Other Clini radha Condi tions : ICD-1 0 Code: z01.4 19, z11.5 1 The Pap test is a scree susana test for uteri ne cervi radha cance r with an inher ent, but low false negat minna rate. A biops y is recom kaila d for any suspi cious or visib le lesio n. The patie nt shoul d be remin ded to consu lt a gynec ologi c care provi elgin if they exper ience any suspi cious signs or sympt oms regar dless of the Pap test resul t. END OF REPOR T Not Available [facility] Only - [facility] [address] [facility], [place], [address], 08/05/2025 17:24:31 06/22/20 24 dexa scan axial ([facility]) [facility] [address] [place] [id number] [phone] ------ ---NAM E----- ---- NUMBER SEX AGE ADMIT DISC. XRAY# F/C TYPE PERKIN S ANGEL [id number] F 20 4 4 [id number] O/P DATE OF : 2004 M/R# [id number] PH#: LOCATI ON: TRANSC RIBED: 12:55 DEXA SCAN AXIAL [id number] COMPLE MARILOU: 9:16 TLR [id number] {REASO N FOR DEXA: [facility] MEDICA TIONS ALEXA Marshall PHYSIC ANDREW: GREEN DIAMANTE ====== ====== ====== ====== ====== ====== ====== ====== ====== ====== ====== ====== ====== R A D I O L O G Y R E P O R T ====== ====== ====== ====== ====== ====== ====== ====== ====== ====== ====== ====== ====== EXAMIN ATION: DEXA SCAN AXIAL DEE Marshall PROVID ED HISTOR Y: Dee marshall has been on long-t erm hormon al contra ceptiv e (Depo shot) x 5 years. COMPAR ISONS: None FINDIN GS: Becaus e the dee marshall is a premen opausa l female or a male under the age of 50 the result s report ed will be Z-scor es. AP lumbar spine Z-scor e is -2.4 Left hip: Total Hip Z-scor e is 0.1 Femora l Neck Z-scor e is -0.2 IMPRES HUNTER: BMD below expect ed range for age. Please see PACS for full comput er genera marilou result s. Additi onal Clinic al Inform ation: Bone minera l densit y: Within the expect ed range for age (Z-sco re above -2.0) Below the expect ed range for age (Z-sco re is -2.0 or below) For furthe r inform ation, includ ing treatm ent recomm endati ons, please refer to the 2019 ISCD Offici al Positi ons (http: //www. iscd.o rg) and the NOF's Clinic andrew's Guide to Preven tion and Treatm ent of Osteop orosis (http: //www. nof.or g/prof ession als/cl inical -guide lines) . Medica l evalua tion for second cathy causes of low bone minera l densit y may be approp riate. Dictat ed By: RONNI SOLO M.D. RADIOL OGIST Review ed and Electr onical ly Signed by: _ RONNI SOLO M.D. RADIOL OGIST DCRED Signed Date: 12:55 INTERFACE [facility] - [facility] [address], [place], [address], 07/22/2024 22:17:48 09/13/2004/02/2024 imagi ng/di agnos tic resul t No observ ation record ed. [email or web address] Not Available 03:49:19 09/13/20 24 11/12/2023 imagi ng/di agnos tic resul t No observ ation record ed. [email or web address] Not Available 03:49:26 03/14/20 25 11/27/2021 imagi ng/di agnos tic resul t No observ ation record ed. [email or web address] Not Available 03:44:58 03/14/20 25 09/25/2021 imagi ng/di agnos tic resul t No observ ation record ed. [email or web address] Not Available 03:45:22 03/14/20 25 10/22/2021 imagi ng/di agnos tic resul t No observ ation record ed. [email or web address] Not Available 03:45:24 05/22/20 25 01/13/2019 imagi ng/di agnos tic resul t No observ ation record ed. [email or web address] Available 0 05/22/2025 10:14:18 05/22/20 25 03/18/2019 imagi ng/di agnos tic resul t No observ ation record ed. [email or web address] Available 0 05/22/2025 10:14:21 05/22/20 25 04/12/2018 imagi ng/di agnos tic resul t No observ ation record ed. [email or web address] Available 0 05/22/2025 10:14:22 05/22/20 25 04/21/2018 imagi ng/di agnos tic resul t No observ ation record ed. [email or web address] Available 0 05/22/2025 10:14:23 05/22/20 25 05/03/2019 imagi ng/di agnos tic resul t No observ ation record ed. [email or web address] Available 0 05/22/2025 10:14:27 05/22/20 25 08/04/2018 imagi ng/di agnos tic resul t No observ ation record ed. [email or web address] Available 0 05/22/2025 10:14:38 05/22/20 25 08/31/2020 imagi ng/di agnos tic resul t No observ ation record ed. [email or web address] Available 0 05/22/2025 10:14:41 05/22/20 25 09/02/2018 imagi ng/di agnos tic resul t No observ ation record ed. [email or web address] Available 0 05/22/2025 10:14:42 05/22/20 25 10/19/2018 imagi ng/di agnos tic resul t No observ ation record ed. [email or web address] Available 0 05/22/2025 10:14:48 05/22/20 25 10/28/2018 imagi ng/di agnos tic resul t No observ ation record ed. [email or web address] Available 0 05/22/2025 10:14:50 Result Notes None recorded. Problems Name Problem SNOMED Code Status Onset Date Resolution Date Notes Provider Name and Address Organization Details Recorded Time Contracep tion care managemen t Active 2023 Lila alcocer, [facility] 13:32:23 Seizure 35093541 Active 2023 seizure-l katya activity ISATU Jorge [facility] 4 13:33:02 Pain in pelvis 86156801 [facility] 13:33:58 Mixed anxiety and depressiv e disorder 194278929 Active 2023 [facility] 13:34:25 Pain of bilateral knee regions 682021882766 102 Active 2023 [facility] 13:35:03 Moderate persisten t asthma 358501427 Active 2023 [facility] 13:35:53 Lesion of vulva 918665313 Active 2023 Abby Trejo MD [address] [place] [address], [id number] [place] [address] 4 10:52:12 Long-term current use of hormonal contracep tive 431633533197 105 Active 2023 Rossi Pagan [facility] 4 15:26:38 Problem Notes None recorded. Medical Equipment None Reported. Medications Name Sig Start Date Stop Date Status Note LastModified by Organization Details LastModified Time trazodone 50 mg tablet TAKE 2 TABLETS BY MOUTH AT BEDTIME active Not Available Not Available No t Available azithromyci n 250 mg tablet TAKE BY MOUTH DIRECTED 03/26 completed Not Available Not Available Not Available methylpheni date 10 mg tablet TAKE 1 TABLET BY MOUTH EVERY MORNING active Not Available Not Available No t Available hydrocodone 5 mg-acetamin ophen 325 mg tablet 03/26 completed Not Available Not Available Not Available methylpheni date 20 mg tablet TAKE 1 TABLET BY MOUTH DAILY active Not Available Not Available No t Available fluoxetine 10 mg tablet TAKE 1 TABLET BY MOUTH DAILY active Not Available Not Available No t Available tretinoin 0.05 % topical cream APPLY PEA SIZED AMOUNT TOPICALLY TO FACE AT NIGHT active Not Available Not Available No t Available famotidine 20 mg tablet TAKE 1 TABLET BY MOUTH EVERY 12 HOURS FOR 7 DAYS active Not Available Not Available No t Available trazodone 100 mg tablet TAKE 2 TABLETS BY MOUTH AT BEDTIME active Not Available Not Available No t Available fluoxetine 20 mg tablet TAKE 2 TABLETS BY MOUTH DAILY active Not Available Not Available No t Available prednisone 50 mg tablet TAKE 1 TABLET BY MOUTH DAILY FOR 5 DAYS active Not Available Not Available No t Available montelukast 10 mg tablet TAKE 1 TABLET BY MOUTH AT BEDTIME active Not Available Not Available No t Available hydroxyzine HCl 25 mg tablet TAKE 1 TO 2 TABLETS BY MOUTH AT BEDTIME active Not Available Not Available No t Available epinephrine 0.3 mg/0.3 mL injection, auto-inject or INJECT 1 PEN IN THE MUSCLE ONE TIME DIRECTED FOR ALLERGIC REACTION active Not Available Not Available No t Available methylpredn isolone 4 mg tablets in a dose pack FOLLOW PACKAGE DIRECTION S 03/26 completed Not Available Not Available Not Available albuterol sulfate HFA 90 mcg/actuati on aerosol inhaler INHALE 1 TO 2 PUFFS BY MOUTH EVERY 4 TO 6 HOURS NEEDED active Not Available Not Available No t Available medroxyprog esterone 150 mg/mL intramuscul ar suspension Inject 1 mL every 3 months by intramusc ular route. 2023 active last rx 024 Not Available Not Available Not Available amoxicillin 875 mg-potassiu m clavulanate 125 mg tablet TAKE 1 TABLET BY MOUTH EVERY 12 HOURS 03/29 completed Not Available Not Available Not Available clindamycin 1 % lotion APPLY THIN LAYER TOPICALLY TO FACE EVERY MORNING active Not Available Not Available No t Available medroxyprog esterone 150 mg/mL intramuscul ar syringe ADMINISTE R 1 ML IN THE MUSCLE EVERY 3 MONTHS active Not Available Not Available No t Available Asmanex Twisthaler 220 mcg/actuati on(120 doses) breath activated inhlr INHALE 1 PUFF BY MOUTH TWICE DAILY. RINSE MOUTH AFTER USE active Not Available Not Available No t Available Asmanex Twisthaler 220 mcg/actuati on(60 doses) breath activated inhalr INHALE 1 PUFF BY MOUTH TWICE DAILY. RINSE MOUTH AFTER USE active Not Available Not Available No t Available BinaxNOW COVID-19 Ag Self Test kit TEST DIRECTED TODAY active Not Available Not Available No t Available Vitals Date Recorded Body height Body mass index (BMI) [Percentile] Per age and sex Body mass index (BMI) Body weight Systolic And Diastolic Provider Name and Address Organization Details Last Updated DateTime 03/26/2024 167.64 cm 36 % 20.7 kg/m2 20528.8 2 g 108/86 mm[Hg] Tram Argueta [facility] 4 15:28:09 Date Recorded Body height Body mass index (BMI) Body mass index (BMI) [Percentile] Per age and sex Body weight Systolic And Diastolic Provider Name and Address Organization Details Last Updated DateTime 05/07/2024 167.64 cm 20.7 kg/m2 36 % 43881.8 2 g 106/60 mm[Hg] [facility] 4 12:20:16 Date Recorded Respiratory rate Body weight Heart rate Oxygen saturation Oxygen saturation in Arterial blood by Pulse oximetry Body temperature Systolic And Diastolic Provider Name and Address Organization Details Last Updated DateTime 4 16 /min 18297.6 0047 g 84 /min 99 % 99 % 97.7 [degF] 106/72 mm[Hg] Not Available [facility], [facility]–1983 4 06:25:06 Date Recorded Respiratory rate Body weight Heart rate Body temperature Systolic And Diastolic Provider Name and Address Organization Details Last Updated DateTime 4 16 /min 62767.6 0047 g 84 /min 97.4 [degF] 110/70 mm[Hg] Not Available [facility], [facility]–1983 4 06:25:06 Date Recorded Body height Body mass index (BMI) Body weight Systolic And Diastolic Provider Name and Address Organization Details Last Updated DateTime 07/22/2025 165.1 cm 20.8 kg/m2 15896.05 g 100/60 mm[Hg] [facility] 07/22/2025 15:33:17 Social History None recorded. Functional Status None recorded. Mental Status None recorded. Family History Nothing Reported. Medical History No medical history recorded. Gynecological History Statement/Question Response Menses Monthly N Abnormal Pap N Age at Menarche 10 Current Control Method Depo-Pet Care Assistant a LMP Unknown Sexually Active? N Obstetrics History GPAL:G 0 P 0 0 0 0 Immunizations Vaccine Type Date Status Note Provider Nam e and Address Organization Details Recorded Time Hep B, unspecified formulation 3 completed Not Available [facility] 07/22/2025 15:13:51 Hib, unspecified formulation 4 completed Not Available [facility] 07/22/2025 15:13:51 Pneumococcal conjugate PCV 13 4 completed Not Available [facility] 07/22/2025 15:13:51 Hep B, unspecified formulation 4 completed Not Available [facility] 07/22/2025 15:13:51 DTaP, unspecified formulation 4 completed Not Available [facility] 07/22/2025 15:13:51 polio, unspecified formulation 4 completed Not Available [facility] 07/22/2025 15:13:51 Hib, unspecified formulation 4 completed Not Available [facility] 07/22/2025 15:13:51 DTaP, unspecified formulation 4 completed Not Available [facility] 07/22/2025 15:13:51 polio, unspecified formulation 4 completed Not Available [facility] 07/22/2025 15:13:51 Pneumococcal conjugate PCV 13 4 completed Not Available [facility] 07/22/2025 15:13:51 Hep B, unspecified formulation 4 completed Not Available [facility] 07/22/2025 15:13:51 DTaP, unspecified formulation 4 completed Not Available [facility] 07/22/2025 15:13:51 Pneumococcal conjugate PCV 13 4 completed Not Available [facility] 07/22/2025 15:13:51 Hib, unspecified formulation 4 completed Not Available [facility] 07/22/2025 15:13:51 MMR 9 completed Not Available [facility] 07/22/2025 15:13:51 varicella 9 completed Not Available [facility] 07/22/2025 15:13:51 polio, unspecified formulation 9 completed Not Available [facility] 07/22/2025 15:13:51 Hep A, unspecified formulation 9 completed Not Available [facility] 07/22/2025 15:13:51 DTaP, unspecified formulation 9 completed Not Available [facility] 07/22/2025 15:13:51 Hep B, unspecified formulation 9 completed Not Available [facility] 07/22/2025 15:13:51 MMR 9 completed Not Available [facility] 07/22/2025 15:13:51 Influenza, split virus, trivalent, preservative 2 completed Not Available [facility] 07/22/2025 15:13:51 Meningococcal MCV4O 5 completed Not Available [facility] 07/22/2025 15:13:51 Tdap 5 completed Not Available [facility] 07/22/2025 15:13:51 varicella 5 completed Not Available [facility] 07/22/2025 15:13:51 Tdap 7 completed Not Available [facility] 07/22/2025 15:13:51 HPV9 9 completed Not Available [facility] 07/22/2025 15:13:51 Meningococcal MCV4O 0 completed Not Available [facility] 07/22/2025 15:13:51 meningococcal B, OMV 0 completed Not Available [facility] 07/22/2025 15:13:51 COVID-19, mRNA, LNP-S, PF, 30 mcg/0.3 mL dose 1 completed Not Available [facility] 07/22/2025 15:13:51 Influenza, split virus, quadrivalent, PF 1 completed Not Available [facility] 07/22/2025 15:13:51 COVID-19, mRNA, LNP-S, PF, 30 mcg/0.3 mL dose 1 completed Not Available [facility] 07/22/2025 15:13:51 COVID-19, mRNA, LNP-S, PF, 30 mcg/0.3 mL dose 1 completed Not Available [facility] 07/22/2025 15:13:51 HPV9 2 completed Not Available [facility] 07/22/2025 15:13:51 meningococcal B, OMV 2 completed Not Available [facility] 07/22/2025 15:13:51 Hep A, ped/adol, 2 dose 2 completed Not Available [facility] 07/22/2025 15:13:51 Past Encounters Encounter ID Performer Location Encounter Start Date Encounter Closed Date Diagnosis/Indication Diagnosis SNOMED-CT Code Diagnosis ICD10 Code Diagnosis IMO Codes Diagnosis Note [id number] Abby Trejo MD [facility] ([place]) [address] [place] [phone] 03/26/2024 15:15:49 03/29/2024 11:51:09 Routine gynecologic examination done 5892403009 9101 Z01.752 [id number] Abby Trejo MD [facility] ([place]) [address] [place] [address] [phone] 04/06/2024 12:24:22 04/07/2024 08:10:15 [id number] [facility] [address] [place] [address] [phone] 05/07/2024 11:55:50 05/07/2024 16:13:18 Lesion of vulva 170846944 N90.89 [id number] Abby Trejo MD [facility] ([place]) [address] [place] [address] [phone] 06/23/2024 12:27:51 06/23/2024 12:43:19 Contraception care management 933923442 Z30.9 [id number] Abby Trejo MD [facility] ([place]) [address] [place] [address] [phone] 07/22/2025 15:07:26 07/22/2025 16:54:01 Gynecologic examination 39101058 Z01.419 Z11.51 [id number] Health Concerns Section Related Observation LastModified by Organization Detai ls LastModified Time None Recorded Concern Status LastModified by Organization Details LastModified Time None Recorded Advance Directives Directive None Recorded Payers Insurance Date Sequence Insurance Name Policy Number Policy Gee Covered Member ID Gee Member ID Guarantor Name 07/22/2025 1 [place] [facility] [id number] Angel Mendes [id number] Angel Mendes 07/22/2025 1 [facility] - DOS PRIOR TO 2025 (MEDICAID REPLACEMENT - HMO) [id number] Angel Mendes [id number] Angel Mendes 07/22/2025 1 [facility] - DOS ON OR AFTER 2025 (MEDICAID REPLACEMENT - HMO) [id number] Angel Mendes [id number] Angel Mendes Notes Date Note Type Note Provider Name and Address Organization Details Recorded Time 03/26/2024 text/html Patient is a 18-year-old female who comes to clinic today for her annual exam. She is doing well. 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 She has been sexually active but presently does not have a partner. She declines STD testing. She denies any pelvic pain or any abnormal discharge. She has normal bowel and bladder function. She denies any significant gynecologic history. She would like to continue on her Depo-Provera. She has no other questions or concerns at this time.traci Trejo MD [facility] [place] [address], [phone], [facility] 03/31/2024 22:39:32 05/07/2024 text/html The patient is a 18-year-old white female who comes to clinic today for a lesion on her left labia. She states she thought she had an ingrown hair, it then became probably about the size of a small marble, and then it started going down. She now states it is almost better. She denies any drainage from that area. She denies any fever or chills. She has no other questions or concerns at this time. She feels well. She has normal bowel and bladder function. She denies any pain with intercourse.rb Abby Trejo MD [address] [place] [address], [phone], [facility] 05/11/2024 14:44:36 OBGyn Episode No OBEpisode recorded.
--- OUTSIDE RECORDS SUMMARY | 2025-08-29 16:14 | XMS_ITS | Clinical Summary ---
Author Organization [facility] Address [address] [place] [id number] Care Team Providers Care Net Trainer Name Role Phone Jonel Cunningham MD Primary Care Provider + Social History Tobacco Use Types Packs/Day Years Used Date Smoking Tobacco: Never Assessed Comments Unknown Sex and Gender Information Value Date Recorded Sex Assigned at Not on file Legal Sex Female 8:51 PM CDT Gender Identity Not on file Sexual Orientation Not on file Last Filed Vital Signs Vital Sign Reading Time Taken Comments Blood Pressure 105/64 08/31/2020 8:55 AM CDT Pulse 77 08/31/2020 8:55 AM CDT Temperature - - Respiratory Rate - - Oxygen Saturation 100% 08/31/2020 8:55 AM CDT Inhaled Oxygen Concentration - - Weight 29 kg (64 lb) 08/19/2013 9:45 AM CDT Height 139.7 cm (4' 7) 08/19/2013 9:45 AM CDT Body Mass Index 14.88 08/19/2013 9:45 AM CDT Plan of Treatment Health Maintenance Due Date Last Done Comments Cervical Cancer Screening Pa p Smear (Age 21 to 29) Every 3 Years 2003 Cervical Cancer Screening 2003 Annual Physical 2006 HPV Vaccines (2 - 3-dose series) 12/18/2018 11/20/2018 Meningococcal B Vaccine (2 o f 2 - Bexsero SCDM 2-dose series) 12/13/2020 06/12/2020 Hepatitis C 2021 DTaP, Tdap and Td Vaccines ( 1 - Tdap) 2022 Hepatitis B Vaccines (1 of 3 - 19+ 3-dose series) 2022 COVID-19 Vaccine (1 - 2024-2 5 season) 2025 Influenza Adult (#1) 2025 Pneumococcal Vaccine: Pediatrics (0 to 5 Years) and At-Risk Patients (6 to 49 Years) Aged Out 03/13/2004, 01/13/2004, 2003 No longer eligible based on patient's age to complete this topic Meningococcal Vaccine Completed 06/12/2020 , 08/30/2015 RSV Immunizations Under 20 Months Aged Out No longer eligible b ased on patient's age to complete this topic Insurance [facility] MEDICAID Care Teams Net Trainer Relationship Specialty Start Date End Date Jonel Cunningham MD [address] [place] [phone] PCP - General FAMILY PRACTICE 05/03/19
--- OUTSIDE RECORDS SUMMARY | 2025-08-29 16:14 | XMS_ITS | Encounter Summary ---
Author Organization [facility] Address [facility]ly [facility] [place] [address] Care Team Providers Care Maker Up Folding Name Role Phone Jonel Cunningham MD Primary Care Provider + Encounter Details Date Type Department Care Team (Late st Contact Info) Description 01/31/2018 Abstract [facility] CONVERSION [address] [place] [address] , Generic Conversion, Social History Tobacco Use Types Packs/Day Years Used Date Smoking Tobacco: Never Assessed Comments Unknown Sex and Gender Information Value Date Recorded Sex Assigned at Not on file Legal Sex Female 8:51 PM CDT Gender Identity Not on file Sexual Orientation Not on file documented as of this encounter Plan of Treatment Not on file documented as of this encounter Visit Diagnoses Not on filedocumented in this encounter Care Teams Maker Up Folding Relationship Specialty Start Date End Date Jonel Cunningham MD [address] [place] [phone] PCP - General FAMILY PRACTICE 05/03/19 documented as of this encounter
--- OUTSIDE RECORDS SUMMARY | 2025-08-29 16:15 | XMS_ITS | Clinical Summary ---
Author Organization [facility] Address [address] [place] [address] Care Team Providers Care Manager Activities Name Role Phone Jonel Cunningham MD Primary Care Provide r Source Comments [facility],non-owned Affiliates and Associated Physician Practices is amultiple site organization consisting of ambulatory clinics and hospital sitesin [place], [place]. This disclosure is being madepursuant to the Care Everywhere program and may not contain all information available regarding this patient. Last updated 18.[facility] Allergies No known active allergies Medications * Be aware that medications may not be up to date on this document. Alwaysverify current medications with the patient. amitriptyline (Elavil) 25 MG tabletIndicati ons:Insomnia Take 1 (one) tablet by mouth as needed Reasons: Insomnia Active acetaminophen (Tylenol) 325 MG tablet Take 2 (two) tablets by mouth every 6 hours as needed Maximum allowable Acetaminophen amount = 4 Grams (4000 mg) / 24 hours. 3 Active Active Problems Problem Noted Date Diagnosed Date Seizure-like activity 03/06/2023 Social History Tobacco Use Types Packs/Day Years Used Date Smoking Tobacco: Never Smokeless Tobacco: Never Tobacco Cessation:Counseling Given: Yes Alcohol Use Standard Drinks/Week Comments Yes 0 (1 standard drink = 0.6 oz pur e alcohol) Overall Financial Resource Strain (CARDIA) Answe r Date Recorded How hard is it for you to pa y for the very basics like food, housing, medical care, and heating? Not hard at all 03/07/2023 [facility] [place] [facility] Occupat ional Health - Occupational Stress Questionnaire Answer Date Recorded Do you feel stress - tense, restless, nervous, or anxious, or unable to sleep at night because your mind is troubled all the time - these days? To some extent 03/07/2023 Hunger Vital Sign Answer Date Recorded Within the past 12 months, y ou worried that your food would run out before you got the money to buy more. Never true 03/07/20 23 Within the past 12 months, t he food you bought just didn't last and you didn't have money to get more. Never true 03/07/2023 PRAPARE - Transportation Answer Date Re corded In the past 12 months, has l ack of transportation kept you from medical appointments or from getting medications? No 02/16 In the past 12 months, has l ack of transportation kept you from meetings, work, or from getting things needed for daily living? No 03/07/2023 Housing Stability Vital Sign Answer [place] Recorded In the last 12 months, was t here a time when you were not able to pay the mortgage or rent on time? No 03/07/2023 In the last 12 months, how many places have you lived? 1 03/07/2023 In the last 12 months, was t here a time when you did not have a steady place to sleep or slept in a detention (including now)? No 03/07/2023 Comments Unknown Sex and Gender Information Value Date Recorded Sex Assigned at Not on file Legal Sex Female 11:48 AM CDT Gender Identity Not on file Sexual Orientation Not on file Last Filed Vital Signs Vital Sign Reading Time Taken Comments Blood Pressure 94/60 03/09/2023 4:32 AM CDT Pulse 65 03/09/2023 4:32 AM CDT Temperature 37 C (98.6 F) 03/09/2023 4:32 AM CDT Respiratory Rate 18 03/09/2023 4:32 AM CDT Oxygen Saturation 97% 03/09/2023 4:32 AM CDT Inhaled Oxygen Concentration - - Weight 54.4 kg (120 lb) 03/07/2023 12:33 AM CDT Height 167.6 cm (5' 6) 03/07/2023 12:33 AM CDT Body Mass Index 19.37 03/07/2023 12:33 AM CDT Plan of Treatment Health Maintenance Due Date Last Done Comments HIV SCREENING 2018 HPV VACCINE (1 - 3-dose series) 2018 CHLAMYDIA/GONORRHEA SCREENING 2019 MENINGOCOCCAL (Group B) VACC INE SHARED DECISION-MAKING (1 of 2 - Standard) 2019 HEPATITIS C SCREENING 08/22/2021 DTAP/TDAP/TD VACCINES (1 - Tdap) 2022 HEPATITIS B VACCINE (1 of 3 - 19+ 3-dose series) 2022 PAP SMEAR 2024 DEPRESSION SCREENING 11/17/2024 COVID-19 VACCINE (1 - 2023-2 5 season) 2025 INFLUENZA VACCINE (#1) 2025 ZOSTER VACCINE (1 of 2) 2053 HIB VACCINE Aged Out No longer eligi ble based on patient's age to complete this topic MENINGOCOCCAL GROUPS A/C/Y/W VACCINE Aged Out No longer eligible b ased on patient's age to complete this topic PNEUMOCOCCAL VACCINE Aged Out No long er eligible based on patient's age to complete this topic Insurance MEDICAID Advance Directives * Full Code (Latest Code Status on File) Date Activated Date Inactivated Comments 03/07/2023 12:52 AM 03/09/2023 1:19 PM * Full Code Date Activated Date Inactivated Comments 03/07/2023 12:13 AM 03/07/2023 12:52 AM Care Teams Manager Activities Relationship Specialty Start Date End Date Jonel Cunningham MD [address] [place] [id number] PCP - General Pediatrics 03/07/23
[2025-08-29 16:25] LABS: Hematocrit 40.7 % (37.0-47.0); Hemoglobin 13.1 g/dL (12.0-15.0); Immature Granulocyte Percent A 0.4 % (0-0.5); Lymphocytes Absolute Auto 1.36 K/mm3 (0.9-3.2); Mean Corpuscular HGB Conc 32.2 g/dl (32-36); Mean Corpuscular Hemoglobin 27.5 pg (26-34); Mean Corpuscular Volume 85.5 fl (80-100); Nucleated Red Blood Cells Absolute Auto 0.000 K/mm3 (0.0-0.012); Nucleated Red Blood Cells Perc 0.0 % (0.0-0.2); Platelet Count Result 340 k/mm3 (150-375); Red Blood Count 4.76 M/mm3 (4.2-5.4); White Blood Count 8.3 K/mm3 (4.5-10.0)
[2025-08-29 16:36] LABS: INR 1.2; Prothrombin Time 14.8 Seconds (11.1-14.7)
[2025-08-29 16:37] LABS: Partial Thromboplastin Time 27.1 Seconds (22.3-36.8)
[2025-08-29 16:50] LABS: Alanine Aminotransferase 20 U/L (6-35); Albumin Level 4.1 g/dL (3.5-5.1); Alkaline Phosphatase 86 U/L (38-126); Anion Gap 7 mmol/L (4-12); Aspartate Amino Transferase 30 U/L (14-36); Bilirubin,Total 0.4 mg/dL (0.2-1.3); Blood Urea Nitrogen 11 mg/dL (7-17); Calcium 8.9 mg/dL (8.4-10.2); Carbon Dioxide 24 mmol/L (22-30); Chloride 106 mmol/L (98-107); Estimated CRCL calculation 103 ml/min; Estimated Glomerular Filt Rate > 60; Glucose 108 mg/dL (65-110); Lipase 156 U/L (23-300); Potassium 4.1 mmol/L (3.4-5.0); Sodium 137 mmol/L (137-145); Total Protein 7.7 g/dL (6.3-8.2)
[2025-08-29 16:57] LABS: Troponin I < 0.012 ng/mL (0.000-0.034)
[2025-08-29 17:02] LABS: Influenza A QL RT-PCR Negative (Negative); Influenza B QL RT-PCR Negative (Negative); RSV RNA, RT-PCR Negative (Negative); SARS-CoV-2 RNA PCR Negative (Negative)
--- NOTE | 2025-08-29 19:06 | ECG_ITS ---
Test Date: 2025-08-29 19:24:51 Measurements Intervals [place] Rate: 90 P: 69 HI: 143 QRS: 67 QRSD: 80 T: 33 QT: 352 QTc: 431 Interpretive Statements SINUS RHYTHM NORMAL ECG Compared to ECG 08/29/2025 16:13:08 HEART RATE HAS DECREASED Electronically Signed On 08-30-2025 05:27:09 CDT by Zen Louis D.O.
--- OUTSIDE RECORDS SUMMARY | 2025-08-29 19:15 | XMS_ITS | Clinical Summary ---
Author Organization [facility] Address [address] [place] [address] Care Team Providers Care Meter Repairer Helper Name Role Phone Jonel Cunningham MD Primary Care Provide r Source Comments [facility],non-owned Affiliates and Associated Physician Practices is amultiple site organization consisting of ambulatory clinics and hospital sitesin [place], [place] and [place]. This disclosure is being madepursuant to the Care Everywhere program and may not contain all information available regarding this patient. Last updated 18.[facility] Allergies No known active allergies Medications * [...] and heating? Not hard at all 03/07/2023 [facility] [place] of Occupat ional Health - Occupational Stress [...] place to sleep or slept in a [place] facility (including now)? No 03/07/2023 Comments Unknown Sex [...] 12:13 AM 03/07/2023 12:52 AM Care Teams Meter Repairer Helper Relationship Specialty Start Date End Date Jonel Cunningham MD [address] [place] [id number] PCP - General Pediatrics 03/07/23
--- OUTSIDE RECORDS SUMMARY | 2025-08-29 19:15 | XMS_ITS | Clinical Summary ---
Author Organization [facility] Address [address] [place] [id number] Care Team Providers Care Mammography Tech Name Role Phone Jonel Cunningham MD Primary [...] patient's age to complete this topic Insurance [facility] MEDICAID Care Teams Mammography Tech Relationship Specialty Start Date End Date Jonel Cunningham MD [address] [place] [id number] PCP - General FAMILY PRACTICE 05/03/19
--- OUTSIDE RECORDS SUMMARY | 2025-08-29 19:15 | XMS_ITS | Encounter Summary ---
Author Organization [facility] Address [facility] [place] [address] Care Team Providers Care Herbicide Sprayer Name Role Phone Jonel Cunningham MD Primary Care Provider + Encounter Details Date Type Department Care Team (Late st Contact Info) Description 01/31/2018 Abstract [facility] CONVERSION [address] [place] [address] , Generic Conversion, Social History Tobacco Use [...] on filedocumented in this encounter Care Teams Herbicide Sprayer Relationship Specialty Start Date End Date Jonel Cunningham MD [address] [place] [phone] PCP - General FAMILY PRACTICE 05/03/19 documented as of this encounter
[2025-08-29] MEDS: KETOROLAC 30 MG/ML VIAL (*BKC) IV PUSH (19:22)
[2025-08-29 20:00] LABS: Troponin I < 0.012 ng/mL (0.000-0.034)
[2025-08-29 20:32] LABS: BEDSIDEPREGUCG Negative (Negative)
== END 2025-08-29 21:43 | disposition home or self-care (01) ==
PROVIDERS: Physician Assistant; Student in an Organized Health Care Education/Training Program; Emergency Provider Emergency Medicine
DX: R09.1 Pleurisy (principal); J45.909 Unspecified asthma, uncomplicated; R00.0 Tachycardia, unspecified
CPT/HCPCS: 36415; 71046; 71275; 80053; 81025; 83690; 84484; 85025; 85380; 85610; 85730; 87637; 93005; 96374; 99284; J1885; Q9967